=== PATIENT | female | born 1985 | race Caucasian/White ===

== ENCOUNTER 2020-01-16 07:07 | Day surgery (SDC) | payer BC ==
[2020-01-16] MEDS: Lactated Ringers 1,000 ML IV SCH ×2 (06:58→09:38)
[~2020-01-16 07:07] MED LIST: Lidocaine 1%/Sod Bicarbonate in NS 8.4% 1 ML Syringe IDERM PRN; Sodium Chloride 0.9% 10 ML Syringe FLUSH PRN
--- NOTE | 2020-01-16 07:20 | PCM.PREANE ---
Preanesthetic Assessment - Procedure Proposed Procedure: TVH with BS - Anesthesia/Transfusion/Family Hx Anesthesia History: Prior Anesthesia Reaction (itching) Family History of Anesthesia Reaction: No Transfusion History: No Prior Transfusion(s) - Review of Systems General: No Symptoms Pulmonary: No Symptoms Cardiovascular: No Symptoms Gastrointestinal: No Symptoms Neurological: No Symptoms Other: Reports: None - Physical Assessment NPO Status Date: 01/15/20 NPO Status Time: 17:30 Vital Signs: Last Vital Signs Temp 36.8 C 01/16/20 06:35 Pulse 67 01/16/20 06:35 Resp 16 01/16/20 06:35 BP 125/88 01/16/20 06:35 Pulse Ox 98 01/16/20 06:35 Height: 1.68 m Weight: 57.153 kg ASA Class: 2 Mental Status: Alert & Oriented x3 Airway Class: Mallampati = 1 Dentition: Reports: Normal Dentition Thyro-Mental Finger Breadths: 3 Mouth Opening Finger Breadths: 3 ROM/Head Extension: Full Lungs: Clear to Auscultation, Normal Respiratory Effort Cardiovascular: Regular Rate, Regular Rhythm - Lab Values: Laboratory Last Values WBC 5.13 K/mm3 (3.98-10.04) 01/13/20 16:03 RBC 4.75 M/mm3 (3.98-5.22) 01/13/20 16:03 Hgb 14.1 gm/dl (11.2-15.7) 01/13/20 16:03 Hct 42.1 % (34.1-44.9) 01/13/20 16:03 MCV 88.6 fl (79.4-94.8) 01/13/20 16:03 MCH 29.7 pg (25.6-32.2) 01/13/20 16:03 MCHC 33.5 g/dl (32.2-35.5) 01/13/20 16:03 RDW Std Deviation 41.9 fL (36.4-46.3) 01/13/20 16:03 Plt Count 271 K/mm3 (182-369) 01/13/20 16:03 MPV 10.4 fl (9.4-12.3) 01/13/20 16:03 Neut % (Auto) 52.2 % (34.0-71.1) 01/13/20 16:03 Lymph % (Auto) 33.7 % (19.3-51.7) 01/13/20 16:03 [place] % (Auto) 9.0 % (4.7-12.5) 01/13/20 16:03 Eos % (Auto) 4.7 (0.7-5.8) 01/13/20 16:03 Baso % (Auto) 0.4 % (0.1-1.2) 01/13/20 16:03 Neut # (Auto) 2.68 K/mm3 (1.56-6.13) 01/13/20 16:03 Lymph # (Auto) 1.73 K/mm3 (1.18-3.74) 01/13/20 16:03 [place] # (Auto) 0.46 K/mm3 (0.24-0.36) H 01/13/20 16:03 Eos # (Auto) 0.24 K/mm3 (0.04-0.36) 01/13/20 16:03 Baso # (Auto) 0.02 K/mm3 (0.01-0.08) 01/13/20 16:03 Urine Color Yellow (Yellow) 01/16/20 06:33 Urine Appearance Clear (Clear) 01/16/20 06:33 Urine pH 6.0 (5.0-8.0) 01/16/20 06:33 Ur Specific [place] > or = 1.030 (1.005-1.030) 01/16/20 06:33 Urine Protein Trace (Negative) H 01/16/20 06:33 Urine Glucose (UA) Negative (Negative) 01/16/20 06: Urine Ketones Negative (Negative) 01/16/20 06:33 Urine Occult Blood 1+ (Negative) H 01/16/20 06:33 Urine Nitrite Negative (Negative) 01/16/20 06:33 Urine Bilirubin Negative (Negative) 01/16/20 06:33 Urine Urobilinogen 0.2 (0.2-1.0) 01/16/20 06:33 Ur Leukocyte Esterase Negative (Negative) 01/16/20 06:33 Urine HCG, Qual Negative (NEGATIVE) 01/13/20 16:03 - Allergies Allergies/Adverse Reactions: Allergies Allergy/AdvReac Type Severity Reaction Status Date / Time No Known Allergies Allergy Verified 01/14/20 16:19 - Blood Blood Available: Yes Product(s) Available: PRBC - Anesthesia Plan Pre-Op Medication Ordered: None - Acknowledgements Anesthesia Type Planned: General Anesthesia Pt an Appropriate Candidate for the Planned Anesthesia: Yes Alternatives and Risks of Anesthesia Discussed w Pt/Guardian: Yes Pt/Guardian Understands and Agrees with Anesthesia Plan: Yes PreAnesthesia Questionnaire HEENT History: Reports: Other (See Below) Other HEENT History: rhytides Cardiovascular History: Reports: None Respiratory History: Reports: Asthma Gastrointestinal History: Reports: None Genitourinary History: Reports: UTI, Recurrent, Other (See Below) Other Genitourinary History: dysuria MANAGER MOLECULAR History: Reports: Endometriosis, Other OB/BYN History: delivery X 1, dysmenorrhea, vaginal discharge, cervical cancer screening Musculoskeletal History: Reports: None Neurological History: Reports: Migraines Psychiatric History: Reports: Anxiety, Depression Endocrine/Metabolic History: Reports: None Hematologic History: Reports: Anemia Immunologic History: Reports: None Oncologic (Cancer) History: Reports: None Dermatologic History: Reports: Other (See Below) Other Dermatologic History: acne, dermatitis, rash - Past Surgical History Head Surgeries/Procedures: Reports: None HEENT Surgical History: Reports: Tonsillectomy Respiratory Surgical History: Reports: None GI Surgical History: Reports: None Female Surgical History: Reports: None Male Surgical History: Reports: None Endocrine Surgical History: Reports: None Neurological Surgical History: Reports: None Musculoskeletal Surgical History: Reports: Arthroscopic Knee Other Musculoskeletal Surgeries/Procedures:: Left ACL Oncologic Surgical History: Reports: None Dermatological Surgical History: Reports: None - SUBSTANCE USE Smoking Status *Q: Never Smoker Tobacco Use Within Last Twelve Months: No Second Hand Smoke Exposure: No Days Per Week of Alcohol Use: 0 Number of Drinks Per Day: 0 Total Drinks Per Week: 0 Recreational Drug Use History: No - HOME MEDS Home Medications: Home Meds L Acidophil/B Lactis/B Longum [Florajen3] 460 mg PO DAILY 01/14/20 [History] Multivitamin [Daily Pedrito] 1 tab PO DAILY 01/14/20 [History] Rizatriptan Benzoate [Rizatriptan] 10 mg PO ASDIRECTED PRN 01/14/20 [History] Topiramate 25 mg PO BEDTIME 01/14/20 [History] desog-e.estradioL/e.estradioL [Desogestr-Eth Estrad Eth Estra] 1 tab PO DAILY [History] - CURRENT (IN HOUSE) MEDS Current Meds: Current Medications Lactated Ringer's (Ringers, Lactated) 1,000 mls @ 125 mls/hr IV ASDIRECTED TAMIKO Stop: 01/16/20 23:00 Last Admin: 01/16/20 06:58 Dose: 125 mls/hr Lidocaine/Sodium Bicarbonate (Buffered Lidocaine 1% In Ns 8.4%) 0.25 ml IDERM ONETIME PRN PRN Reason: Prior to IV Start Stop: 01/16/20 18:00 Last Admin: 01/16/20 06:58 Dose: 0.25 ml Sodium Chloride (Saline Flush) 10 ml FLUSH ASDIRECTED PRN PRN Reason: Keep Vein Open Stop: 01/16/20 18:00
[2020-01-16] MEDS ORDERED: Rocuronium 50 MG/5 ML Vial ONE (07:29)
[2020-01-16] MEDS ORDERED: Midazolam 1 MG/ML 2 ML SDV ONE (07:29)
[2020-01-16] MEDS ORDERED: Ondansetron 4 MG/2 ML SDV ONE (07:29)
[2020-01-16] MEDS ORDERED: Propofol 200 MG/20 ML SDV ONE (07:29)
[2020-01-16] MEDS ORDERED: fentaNYL 250 MCG/5 ML SDV ONE (07:30)
[2020-01-16] MEDS ORDERED: Lidocaine 1% with EPINEPHrine 1:100,000 20 ML MDV ONE (07:30)
[2020-01-16] MEDS ORDERED: Bupivacaine 0.5% 30 ML SDV ONE (07:31)
[2020-01-16] MEDS ORDERED: Sodium Chloride 0.9% 50 ML SDV ONE (07:31)
[2020-01-16] MEDS ORDERED: Lidocaine 1% 4 ML ONE (07:35)
[2020-01-16] MEDS ORDERED: Dexamethasone 4 MG/ML 5 ML MDV ONE (07:36)
[2020-01-16] MEDS ORDERED: Ketorolac 30 MG/ML SDV ONE (07:36)
[2020-01-16] MEDS ORDERED: ceFAZolin 1 GM Vial ONE (07:38)
[2020-01-16] MEDS ORDERED: HYDROmorphone 1 MG/ML Syringe ONE (08:12)
[2020-01-16] MEDS ORDERED: Lactated Ringers 1,000 ML ONE (08:14)
[2020-01-16] MEDS ORDERED: Acetaminophen/oxyCODONE 325-5 MG Tab PO PRN (08:37)
[2020-01-16] MEDS ORDERED: Ondansetron 4 MG/2 ML SDV IVPUSH PRN (08:37)
--- NOTE | 2020-01-16 08:42 | PCM.OPNOTE ---
- General Post-Op/Procedure Note Date of Surgery/Procedure: 01/16/20 Operative Procedure(s): Total vaginal Hysterectomy with bilateral salpingectomy Findings: Uterus tubes and ovaries were normal size. No abnormalities noted. Pre Op Diagnosis: 1. Menorrhagia. 2. Dysmenorrhea Post-Op Diagnosis: Same Anesthesia Technique: General ET Tube Other Anesthesia Type: Lidocaine quarter percent with [id number] mLlocal Primary Surgeon: Nadeem Gan Secondary Surgeon: Dean Bella Anesthesia Provider: Miko Palomino Reason Marketing Rep Was Necessary: Assistance, retraction, patient's safety, quality of care. Pathology: Bilateral fallopian tubes, uterus Fluid Replacement, Intraop: 1,500 EBL in mLs: 5 Complications: None Condition: Good Free Text/Narrative:: Surgery duration: 19 minutes Procedure: The patient was placed in supine position on the operating table. General endotracheal anesthesia was accomplished. After positioning, and adequate prep and drape, the procedure was then performed. Sterile speculum was placed in the vagina and cervix was visualized. Cervix was injected with lidocaine quarter percent with epinephrine-20 mL used. A full circumference incision was made in the cervical epithelium. The bladder was pushed well back off cervix. Posterior cul-de-sac was then entered sharply without problems. Left uterosacral was crossclamped with a Enseal vessel closure system. The left uterosacral and then the right uterosacral ligament pedicles were developed using the Enseal system. The anterior cul-de-sac was then entered without problems and the uterine vasculature, cardinal ligament and broad ligament and fallopian tube ligaments were then developed using Enseal vessel closure system. Specimen was totally removed. Left and right fallopian tube was normal in appearance.. Using Enseal vessel closure system each of the tubes was then removed and sent with the specimen. The patient was found to be hemostatically intact at this time. Vaginal cuff was sutured for hemostatic reasons with a running locked suture of 0 Monocryl from the 2 o'clock position to the 10 o'clock position posteriorly. Vaginal cuff was then closed from right to left side with a running locked suture of 0 Monocryl. Patient was returned to supine position and awakened from general endotracheal anesthesia. She tolerated the procedure and left the operating room in satisfactory condition.
[2020-01-16] MEDS ORDERED: diphenhydrAMINE 50 MG/ML SDV IVPUSH PRN (09:04)
[2020-01-16] MEDS ORDERED: fentaNYL 100 MCG/2 ML SDV IVPUSH PRN (09:04)
--- NOTE | 2020-01-16 09:06 | PCM.POSTAN ---
POST ANESTHESIA ASSESSMENT - MENTAL STATUS Mental Status: Alert, Oriented - VITAL SIGNS Vital Signs: Last Vital Signs Temp 36.8 C 01/16/20 06:35 Pulse 67 01/16/20 06:35 Resp 16 01/16/20 06:35 BP 125/88 01/16/20 06:35 Pulse Ox 98 01/16/20 06:35 - RESPIRATORY Respiratory Status: Respiratory Rate WNL, Airway Patent, O2 Saturation Stable, Supplemental Oxygen - CARDIOVASCULAR CV Status: Pulse Rate WNL, Blood Pressure Stable - GASTROINTESTINAL GI Status: No Symptoms - PAIN Pain Score: 2 - POST OP HYDRATION Hydration Status: Adequate & Stable - OBSERVATIONS Free Text/Narrative:: no anesthesia complications noted
--- NOTE | 2020-01-16 09:24 | PCM48HPAN ---
Post Anesthesia Note - EVALUATION WITHIN 48HRS OF ANESTHETIC Vital Signs in Normal Range: Yes Patient Participated in Evaluation: Yes Respiratory Function Stable: Yes Airway Patent: Yes Cardiovascular Function Stable: Yes Hydration Status Stable: Yes Pain Control Satisfactory: Yes Nausea and Vomiting Control Satisfactory: Yes Mental Status Recovered: Yes Vital Signs: Last Vital Signs Temp 36.8 C 01/16/20 06:35 Pulse 67 01/16/20 06:35 Resp 16 01/16/20 06:35 BP 125/88 01/16/20 06:35 Pulse Ox 98 01/16/20 06:35
[2020-01-16 10:37] VITALS: BP 116/81; PULSE 64
[2020-01-16] MEDS ORDERED: Ketorolac 30 MG/ML SDV IVPUSH SCH (13:30)
== END 2020-01-16 10:57 | disposition home or self-care (01) ==
LOC: JD.SDS 07:07
PROVIDERS: ATTEND Obstetrics & Gynecology
DX: N87.9 Dysplasia of cervix uteri, unspecified (principal); N72 Inflammatory disease of cervix uteri; N83.8 Other noninflammatory disorders of ovary, fallopian tube and broad ligament; N94.10 Unspecified dyspareunia; F41.9 Anxiety disorder, unspecified; G43.A0 Cyclical vomiting, in migraine, not intractable; J45.909 Unspecified asthma, uncomplicated; F32.9 Major depressive disorder, single episode, unspecified; Z79.899 Other long term (current) drug therapy
CPT/HCPCS: 36415; 58262; 81003; 81025; 82565; 85025; 86850; 86900; 86901; A9270; J0690; J1100; J1170; J1885; J2001; J2250; J2405; J2704; J2710; J3010; J7120; 00944; J3490

== ENCOUNTER 2021-02-05 18:23 | Emergency (ER) | payer BC ==
[2021-02-05 18:32] VITALS: BP 149/96; PULSE 78
[2021-02-05] MEDS ORDERED: Sodium Chloride 0.9% 10 ML Syringe FLUSH PRN (18:44)
[2021-02-05] MEDS ORDERED: Ondansetron 4 MG/2 ML SDV IVPUSH ONE (18:44)
[2021-02-05] MEDS ORDERED: HYDROmorphone 1 MG/ML Syringe IVPUSH STA (18:44)
[2021-02-05] MEDS ORDERED: Sodium Chloride 0.9% 1,000 ML IV SCH (18:45)
--- NOTE | 2021-02-05 18:51 | EDM.PDOC ---
ED HPI GENERAL MEDICAL PROBLEM - General Chief Complaint: Abdominal Pain Stated Complaint: R SIDE ABD PAIN Time Seen by Provider: 02/05/21 18:34 Source of Information: Reports: Patient, RN Notes Reviewed History Limitations: Reports: No Limitations - History of Present Illness INITIAL COMMENTS - FREE TEXT/NARRATIVE: Patient is a 36-year-old female who presents to the ER for the evaluation of her right lower abdominal pain. She states that she has been having issues with this on and off for a while however about 2 hours ago, it became fairly sharp and consistent. She states that there is always a dull ache, but does get sharp and intense at times so much that it makes it difficult to walk around or move much at all. States that the bumps in the road on the way over here did not feel good at all. She states that the pain does hurt worse when she stands straight up, or if she would bend her knees to her chest. States also that when she puts direct pressure on the right lower quadrant, but this seems to make it worse. She still retains her appendix, and ovaries but has had her uterus taken out. She states she has had no fever, but she does feel hot and cold, and also nauseous. But she has not had any vomiting or diarrhea, any cough or shortness of breath. Right Abdominal Pain Score (Numeric/FACES): 4 - Related Data Allergies Allergy/AdvReac Type Severity Reaction Status Date / Time No Known Allergies Allergy Verified 02/05/21 18:32 Home Meds: Home Meds Rizatriptan Benzoate [Rizatriptan] 10 mg PO DAILY PRN 02/05/21 [History] Past Medical History Respiratory History: Reports: Asthma Genitourinary History: Reports: UTI, Recurrent, Other (See Below) Other Genitourinary History: dysuria EMERGENCY ROOM ORDERLY History: Reports: Other EMERGENCY ROOM ORDERLY History: delivery X 1, dysmenorrhea, vaginal discharge, cervical cancer screening Neurological History: Reports: Migraines Psychiatric History: Reports: Anxiety, Depression Hematologic History: Reports: Anemia Dermatologic History: Reports: Other (See Below) Other Dermatologic History: acne, dermatitis, rash - Past Surgical History HEENT Surgical History: Reports: Tonsillectomy Female Surgical History: Reports: Hysterectomy Musculoskeletal Surgical History: Reports: Arthroscopic Knee Other Musculoskeletal Surgeries/Procedures:: Left ACL Social & Family History - Tobacco Use Tobacco Use Status *Q: Never Tobacco User Second Hand Smoke Exposure: No - Caffeine Use Caffeine Use: Reports: None ED ROS GENERAL - Review of Systems Review Of Systems: Comprehensive ROS is negative, except as noted in HPI. ED EXAM, GI/ABD - Physical Exam Exam: See Below Exam Limited By: No Limitations General Appearance: Alert, WD/WN, No Apparent Distress Respiratory/Chest: No Respiratory Distress, Lungs Clear, Normal Breath Sounds, No Accessory Muscle Use, Chest Non-Tender Cardiovascular: Normal Peripheral Pulses, Regular Rate, Rhythm, No Edema GI/Abdominal Exam: Normal Bowel Sounds, Soft, No Distention, No Mass, Tender (exquisite tenderness to RLQ with direct palpation) Extremities: Normal Inspection, Normal Capillary Refill Neurological: Alert, Oriented, Normal Cognition, No Motor/Sensory Deficits Psychiatric: Normal Affect, Normal Mood Skin Exam: Warm, Dry, Intact, Normal Color, No Rash Course - Vital Signs Last Recorded V/S: Last Vital Signs Temp 98.0 F 02/05/21 18:31 Pulse 78 02/05/21 18:31 Resp 20 02/05/21 18:31 BP 149/96 H 02/05/21 18:31 Pulse Ox 99 02/05/21 18:31 - Orders/Labs/Meds Orders: Active Orders 24 hr Category Date Time Status Peripheral IV Care [RC] . DIRECTED Care 02/05/21 18:45 Ordered Abdomen Pelvis w Cont [CT] Stat Exams 02/05/21 18:45 Ordered Magnesium Citrate [Citrate of Magnesia] Med 02/05/21 21:20 Once 296 ml PO ONETIME ONE Sodium Chloride 0.9% [Normal Saline] 1,000 ml Med 02/05/21 18:45 Ordered IV ASDIRECTED Sodium Chloride 0.9% [Saline Flush] Med 02/05/21 18:44 Ordered 10 ml FLUSH ASDIRECTED PRN Sodium Chloride 0.9% [Saline Flush] Med 02/05/21 20:45 Active 20 ml FLUSH BOLUS Peripheral IV Insertion Adult [OM.PC] Stat Oth 02/05/21 18:45 Ordered Medication Orders Sodium Chloride (Normal Saline) 1,000 mls @ 999 mls/hr IV ASDIRECTED TAMIKO Last Admin: 02/05/21 18:54 Dose: 999 mls/hr Documented by: NATALEE Sodium Chloride (Sodium Chloride 0.9% 10 Ml Syringe) 10 ml FLUSH ASDIRECTED PRN PRN Reason: Keep Vein Open Last Admin: 02/05/21 18:55 Dose: 10 ml Documented by: NATALEE Sodium Chloride (Sodium Chloride 0.9% 10 Ml Syringe) 20 ml FLUSH BOLUS TAMIKO Last Admin: 02/05/21 20:33 Dose: 10 ml Documented by: BROOKE Labs: Laboratory Tests 02/05/21 02/05/21 02/05/21 Range/Units 18:40 18:45 18:45 WBC 6.35 (3.98-10.04) K/mm3 RBC 4.42 (3.98-5.22) M/mm3 Hgb 13.6 (11.2-15.7) gm/dl Hct 39.4 (34.1-44.9) % MCV 89.1 (79.4-94.8) fl MCH 30.8 (25.6-32.2) pg MCHC 34.5 (32.2-35.5) g/dl RDW Std Deviation 37.8 (36.4-46.3) fL Plt Count 224 (182-369) K/mm3 MPV 10.3 (9.4-12.3) fl Neut % (Auto) 63.3 (34.0-71.1) % Lymph % (Auto) 26.9 (19.3-51.7) % [place] % (Auto) 8.0 (4.7-12.5) % Eos % (Auto) 1.6 (0.7-5.8) Baso % (Auto) 0.2 (0.1-1.2) % Neut # (Auto) 4.02 (1.56-6.13) K/mm3 Lymph # (Auto) 1.71 (1.18-3.74) K/mm3 [place] # (Auto) 0.51 H (0.24-0.36) K/mm3 Eos # (Auto) 0.10 (0.04-0.36) K/mm3 Baso # (Auto) 0.01 (0.01-0.08) K/mm3 Sodium 139 (136-145) mEq/L Potassium 3.8 (3.5-5.1) mEq/L Chloride 102 (98-107) mEq/L Carbon Dioxide 24 (21-32) mEq/L Anion Gap 16.8 H (5-15) BUN 13 (7-18) mg/dL Creatinine 0.8 (0.55-1.02) mg/dL Est Cr Clr Drug Dosing 92.24 mL/min Estimated GFR (MDRD) > 60 (>60) mL/min BUN/Creatinine Ratio 16.3 (14-18) Glucose 107 H (70-99) mg/dL Calcium 8.9 (8.5-10.1) mg/dL Total Bilirubin 0.5 (0.2-1.0) mg/dL AST 15 (15-37) U/L ALT 16 (14-59) U/L Alkaline Phosphatase 57 (46-116) U/L C-Reactive Protein <0.2 (<1.0) mg/dL Total Protein 7.3 (6.4-8.2) g/dl Albumin 4.0 (3.4-5.0) g/dl Globulin 3.3 gm/dL Albumin/Globulin Ratio 1.2 (1-2) Lipase 89 (73-393) U/L Urine Color Light yellow (Yellow) Urine Appearance Slt cloudy H (Clear) Urine pH 7.0 (5.0-8.0) Ur Specific [place] 1.025 (1.005-1.030) Urine Protein Negative (Negative) Urine Glucose (UA) Negative (Negative) Urine Ketones Negative (Negative) Urine Occult Blood Trace-intact H (Negative) Urine Nitrite Negative (Negative) Urine Bilirubin Negative (Negative) Urine Urobilinogen 1.0 (0.2-1.0) Ur Leukocyte Esterase Negative (Negative) Urine RBC 0-5 (0-5) /hpf Urine WBC 0-5 (0-5) /hpf Ur Squamous Epith Cells 0-5 (0-5) /hpf Amorphous Sediment Moderate H (NOT SEEN) /hpf Urine Bacteria Few (FEW) /hpf Coarse Granular Casts 0-5 (0-5) /hpf Urine Mucus Few (FEW) /hpf Meds: Medications Generic Name Dose Route Start Last Admin Trade Name Freq PRN Reason Stop Dose Admin Sodium Chloride 1,000 mls @ 999 mls/hr 02/05/21 18:45 02/05/21 18:54 Normal Saline IV 999 mls/hr ASDIRECTED TAMIKO Administration Sodium Chloride 10 ml 02/05/21 18:44 02/05/21 18:55 Sodium Chloride 0.9% 10 Ml Syringe FLUSH 10 ml ASDIRECTED PRN Administration Keep Vein Open Sodium Chloride 20 ml 02/05/21 20:45 02/05/21 20:33 Sodium Chloride 0.9% 10 Ml Syringe FLUSH 10 ml BOLUS TAMIKO Administration Discontinued Medications Generic Name Dose Route Start Last Admin Trade Name Rylie PRN Reason Stop Dose Admin Hydromorphone HCl 1 mg 02/05/21 18:44 02/05/21 18:58 Hydromorphone 1 Mg/Ml Syringe IVPUSH 02/05/21 18:45 1 mg ONETIME STA Administration Iopamidol 100 ml 02/05/21 20:31 02/05/21 20:33 Iopamidol 612 Mg/Ml 100 Ml Bottle IVPUSH 02/05/21 20:32 100 ml ONETIME ONE Administration Ondansetron HCl 4 mg 02/05/21 18:44 02/05/21 18:54 Ondansetron 4 Mg/2 Ml Sdv IVPUSH 02/05/21 18:45 4 mg ONETIME ONE Administration - Re-Assessments/Exams Free Text/Narrative Re-Assessment/Exam: 02/05/21 18:51 Patient presents to the ER for her right lower quadrant pain, she does appear to be in quite a bit of pain, highly suspect possible appendicitis versus possible ovarian cyst at this time. We will get some labs, get IV started give her some fluids, pain meds, nausea meds, get abdomen pelvis CT with IV and oral contrast for further evaluation. 02/05/21 21:30 Patient's labs are unremarkable, CT did not see the appendix, but there is no evidence for appendicitis, there is gas and stool seen in the colon to the rectum. The patient has no sign of acute intra-abdominal pathology. The appendix was not identified however there is no evidence of appendicitis. The your were no sign of adnexal masses, and or pelvic fluid to suggest a ruptured ovarian cyst. Patient will be given a bottle of magnesium citrate and strict return precautions. Her case was discussed with Dr. Turpin, surgeon on-call and she feels okay with letting the patient go home monitoring her symptoms and returning if they seem to worsen or if she gets any sort of fever. Departure - Departure Time of Disposition: 21:31 Disposition: Home, Self-Care 01 Condition: Good Clinical Impression: Lower abdominal pain of unknown etiology - Discharge Information *PRESCRIPTION DRUG MONITORING PROGRAM REVIEWED*: No *COPY OF PRESCRIPTION DRUG MONITORING REPORT IN PATIENT JOSH: No Instructions: Abdominal Pain, Adult, [id number] Referrals: Lynette Kamara PA-C [Primary Care Provider] - Forms: ED Department Discharge Additional Instructions: You have been evaluated in the ED for abdominal pain. You had labs done at this visit along with abdominal/pelvis CT, these did demonstrate that you are constipated. You have been given a bottle of magnesium citrate, please drink one half bottle, if you do not have a rather large bowel movement in the next few hours, continue with the last half bottle. Please note that you will have some mild abdomen cramping while using this medication, and you may have some looser stools towards the end of use of this medication. Although your appendix was not identified on this CT exam, there is no sign of inflammation around the area where the appendix would typically be, and laboratory evaluation also demonstrates no sign of acute bacterial infection that would be suggestive of appendicitis at this time. Please monitor your symptoms, if you should develop any worsening symptoms like fevers or chills, worsening abdominal pain that does not seem to go away do not hesitate to return to the ER at any time for further evaluation. Sepsis Event Note (ED) - Evaluation Sepsis Screening Result: No Definite Risk - Focused Exam Vital Signs: Vital Signs Temp Pulse Resp BP Pulse Ox 02/05/21 18:31 98.0 F 78 20 149/96 H 99 - My Orders Last 24 Hours: My Active Orders 02/05/21 18:44 Sodium Chloride 0.9% [Saline Flush] 10 ml FLUSH ASDIRECTED PRN 02/05/21 18:45 Peripheral IV Care [RC] . DIRECTED Abdomen Pelvis w Cont [CT] Stat Sodium Chloride 0.9% [Normal Saline] 1,000 ml IV ASDIRECTED Peripheral IV Insertion Adult [OM.PC] Stat 02/05/21 20:45 Sodium Chloride 0.9% [Saline Flush] 20 ml FLUSH BOLUS 02/05/21 21:20 Magnesium Citrate [Citrate of Magnesia] 296 ml PO ONETIME ONE - Assessment/Plan Last 24 Hours: My Active Orders 02/05/21 18:44 Sodium Chloride 0.9% [Saline Flush] 10 ml FLUSH ASDIRECTED PRN 02/05/21 18:45 Peripheral IV Care [RC] . DIRECTED Abdomen Pelvis w Cont [CT] Stat Sodium Chloride 0.9% [Normal Saline] 1,000 ml IV ASDIRECTED Peripheral IV Insertion Adult [OM.PC] Stat 02/05/21 20:45 Sodium Chloride 0.9% [Saline Flush] 20 ml FLUSH BOLUS 02/05/21 21:20 Magnesium Citrate [Citrate of Magnesia] 296 ml PO ONETIME ONE
[2021-02-05] MEDS ORDERED: Iopamidol 612 MG/ML 100 ML Bottle IVPUSH ONE (20:31)
[2021-02-05] MEDS ORDERED: Sodium Chloride 0.9% 10 ML Syringe FLUSH SCH (20:45)
[2021-02-05] MEDS ORDERED: Magnesium Citrate Solution 296 ML Bottle PO ONE (21:20)
--- NOTE | 2021-02-06 08:40 | CT ---
CT abdomen and pelvis Technique: Multiple axial sections were obtained from above the dome of the diaphragm inferiorly through the pubic symphysis. Intravenous and oral contrast were utilized. Reconstructed coronal and sagittal images were obtained. Additional delayed images were also obtained through the abdomen and pelvis. Comparison: No prior CT study is available. Findings: Visualized lung bases show nothing acute. Liver contains no focal parenchymal abnormality. Very minimal low density is noted next to the ligamentum teres fissure which is felt to be incidental. Spleen size is normal. Adrenal glands show no nodule. Pancreas shows no abnormality. Kidneys show symmetric contrast enhancement with no hydronephrosis or mass being seen. Gallbladder contains no calcified gallstones. Abdominal aorta shows no aneurysm. No retroperitoneal adenopathy or mesenteric abnormalities are seen. Appendix is felt to be visualized and normal in size. No pelvic mass or adenopathy is seen. Delayed images show two ureters on both sides which appear to join distally near the UVJ. No ureteral dilatation is seen. Contrast is noted within the bladder. Bone window settings were reviewed which show no acute osseous abnormality. Impression: 1. Two ureters are noted on both sides which appear to join near the UVJ. No ureteral dilatation is seen. These findings are likely incidental. 2. No acute abnormality is appreciated on CT study of the abdomen and pelvis. Diagnostic code #2 I agree with preliminary report from [facility] finalized on 02/05/21, 10:01 PM CDT, code 1
== END 2021-02-05 21:40 | disposition home or self-care (01) ==
LOC: JD.ED 18:23
DX: R10.31 Right lower quadrant pain (principal); J45.909 Unspecified asthma, uncomplicated
CPT/HCPCS: 36415; 74177; 80053; 81001; 83690; 85025; 86140; 96374; 96375; 99284; J1170; J2405; J7030; Q9967

== ENCOUNTER 2021-06-23 19:29 | Observation (INO) | payer BC ==
[2021-06-23] MEDS ORDERED: Sodium Chloride 0.9% 10 ML Syringe FLUSH PRN (20:02)
[2021-06-23] MEDS ORDERED: Sodium Chloride 0.9% 1,000 ML IV STA (20:02)
[2021-06-23] MEDS ORDERED: Metoclopramide 10 MG/2 ML SDV IVPUSH ONE (20:02)
[2021-06-23] MEDS ORDERED: HYDROmorphone 1 MG/ML Syringe IVPUSH ONE (20:03)
--- NOTE | 2021-06-23 20:22 | EDM.PDOC ---
ED HPI GENERAL MEDICAL PROBLEM - General Chief Complaint: Gastrointestinal Problem Stated Complaint: ENFLAMMED INTESTINES PER WIC/FEVER Time Seen by Provider: 06/23/21 19:34 Source of Information: Reports: Patient, Family, Old Records History Limitations: Reports: No Limitations - History of Present Illness INITIAL COMMENTS - FREE TEXT/NARRATIVE: The patient presents with fever, abdominal pain, nausea, vomiting and diarrhea. This all started on Sunday with a fever. She went to the walk in clinic. They put her on a Z-pack. She took it for a day and things got worse. She developed abdominal pain, nausea, vomiting and diarrhea. She had a more of a fever of 103. She went back to [facility] today and they did an extensive work up to include labs, UA and a CT of her abdomen and pelvis. Her CBC looked good. Her UA shows no UTI. Her CT showed findings suggestive of enteritis. They put in a referral to GI. She went home and got worse. She came to the ER to bee seen. She said she has been having some abdominal pain since January. She was seen here and a CT scan was done. There was nothing acute seen on CT. The pain came back a few months later and the did a pelvis US. There was nothing acute seen. She had a hysterectomy in the past. She had 2 siblings that had normal labs and normal CTs with abdominal pain and both had there appendix out and it was infected. The patient was positive for COVID 19 4 weeks ago. The did stool studies at the clinic but they are not back yet. She has no cough, congestion, runny nose, chest pain or shortness of breath. She has no dysuria. Onset: Gradual Duration: Day(s): (4) Location: Reports: Abdomen Quality: Reports: Sharp Severity: Severe Improves with: Reports: None Worsens with: Reports: None Associated Symptoms: Reports: Fever/Chills, Nausea/Vomiting. Denies: Chest Pain, Cough, Headaches, Shortness of Breath Abdomen Pain Score (Numeric/FACES): 8 - Related Data Allergies Allergy/AdvReac Type Severity Reaction Status Date / Time No Known Allergies Allergy Verified 06/23/21 23:44 Home Meds: Home Meds Rizatriptan Benzoate [Rizatriptan] 10 mg PO DAILY PRN 02/05/21 [History] Past Medical History HEENT History: Reports: Other (See Below) Other HEENT History: rhytides Cardiovascular History: Reports: None Respiratory History: Reports: Asthma Gastrointestinal History: Reports: None Genitourinary History: Reports: UTI, Recurrent, Other (See Below) Other Genitourinary History: dysuria [employer] History: Reports: Other [employer] History: delivery X 1, dysmenorrhea, vaginal discharge, cervical cancer screening Musculoskeletal History: Reports: None Neurological History: Reports: Migraines Psychiatric History: Reports: Anxiety, Depression Endocrine/Metabolic History: Reports: None Hematologic History: Reports: Anemia Immunologic History: Reports: None Oncologic (Cancer) History: Reports: None Dermatologic History: Reports: Other (See Below) Other Dermatologic History: acne, dermatitis, rash - Infectious Disease History Infectious Disease History: Reports: Novel Coronavirus - Past Surgical History Head Surgeries/Procedures: Reports: None HEENT Surgical History: Reports: Tonsillectomy Respiratory Surgical History: Reports: None GI Surgical History: Reports: None Female Surgical History: Reports: Hysterectomy Endocrine Surgical History: Reports: None Neurological Surgical History: Reports: None Musculoskeletal Surgical History: Reports: Arthroscopic Knee Other Musculoskeletal Surgeries/Procedures:: Left ACL Oncologic Surgical History: Reports: None Dermatological Surgical History: Reports: None Social & Family History - Tobacco Use Tobacco Use Status *Q: Never Tobacco User - Caffeine Use Caffeine Use: Reports: Coffee - Recreational Drug Use Recreational Drug Use: No ED ROS GENERAL - Review of Systems Review Of Systems: See Below Constitutional: Reports: Fever, Chills HEENT: Reports: No Symptoms Respiratory: Reports: No Symptoms Cardiovascular: Reports: No Symptoms Endocrine: Reports: No Symptoms GI/Abdominal: Reports: Abdominal Pain, Diarrhea, Nausea, Vomiting : Reports: No Symptoms Musculoskeletal: Reports: No Symptoms ED EXAM, GI/ABD - Physical Exam Exam: See Below Exam Limited By: No Limitations General Appearance: Alert, No Apparent Distress Ears: Normal External Exam Nose: Normal Inspection Head: Atraumatic, Normocephalic Neck: Normal Inspection, Supple, Non-Tender Respiratory/Chest: No Respiratory Distress, Lungs Clear, Normal Breath Sounds Cardiovascular: Regular Rate, Rhythm, No Edema, No Murmur GI/Abdominal Exam: Soft, No Mass, Tender (Moderate to severe tenderness to her abdomen with some guarding) Back Exam: Normal Inspection Extremities: Normal Inspection Course - Vital Signs Last Recorded V/S: Last Vital Signs Temp 101.2 F H 06/23/21 19:46 Pulse 109 H 06/23/21 19:46 Resp 20 06/23/21 19:46 BP 107/71 06/23/21 19:46 Pulse Ox 98 06/23/21 19:46 - Orders/Labs/Meds Orders: Active Orders 24 hr Category Date Time Status Peripheral IV Care [RC] . DIRECTED Care 06/23/21 20:02 Active BLOOD CULTURE [MREF] Stat Lab 06/23/21 20:35 Received BLOOD CULTURE [MREF] Stat Lab 06/23/21 20:50 Received Sodium Chloride 0.9% [Saline Flush] Med 06/23/21 20:02 Active 10 ml FLUSH ASDIRECTED PRN Blood Culture x2 Reflex Set [OM.PC] Stat Oth 06/23/21 20:16 Ordered ED Antiemetic Medication Reflex [OM.PC] Stat Oth 06/23/21 20:02 Ordered Peripheral IV Insertion Adult [OM.PC] Stat Oth 06/23/21 20:02 Ordered Medication Orders Sodium Chloride (Sodium Chloride 0.9% 10 Ml Syringe) 10 ml FLUSH ASDIRECTED PRN PRN Reason: Keep Vein Open Last Admin: 06/23/21 20:18 Dose: 10 ml Documented by: MERY Labs: Laboratory Tests 06/23/21 06/23/21 06/23/21 Range/Units 20:35 20:35 20:35 WBC 6.13 (3.98-10.04) K/mm3 RBC 3.73 L (3.98-5.22) M/mm3 Hgb 11.3 D (11.2-15.7) gm/dl Hct 33.8 L (34.1-44.9) % MCV 90.6 (79.4-94.8) fl MCH 30.3 (25.6-32.2) pg MCHC 33.4 (32.2-35.5) g/dl RDW Std Deviation 39.6 (36.4-46.3) fL Plt Count 119 L D (182-369) K/mm3 MPV 10.6 (9.4-12.3) fl Neut % (Auto) 87.6 H (34.0-71.1) % Lymph % (Auto) 5.5 L (19.3-51.7) % [place] % (Auto) 4.7 (4.7-12.5) % Eos % (Auto) 1.8 (0.7-5.8) Baso % (Auto) 0.2 (0.1-1.2) % Neut # (Auto) 5.37 (1.56-6.13) K/mm3 Lymph # (Auto) 0.34 L (1.18-3.74) K/mm3 [place] # (Auto) 0.29 (0.24-0.36) K/mm3 Eos # (Auto) 0.11 (0.04-0.36) K/mm3 Baso # (Auto) 0.01 (0.01-0.08) K/mm3 Sodium (136-145) mEq/L Potassium (3.5-5.1) mEq/L Chloride (98-107) mEq/L Carbon Dioxide (21-32) mEq/L Anion Gap (5-15) BUN (7-18) mg/dL Creatinine (0.55-1.02) mg/dL Est Cr Clr Drug Dosing mL/min Estimated GFR (MDRD) (>60) mL/min BUN/Creatinine Ratio (14-18) Glucose (70-99) mg/dL Lactic Acid 0.8 (0.4-2.0) mmol/L Calcium (8.5-10.1) mg/dL Total Bilirubin (0.2-1.0) mg/dL AST (15-37) U/L ALT (14-59) U/L Alkaline Phosphatase (46-116) U/L C-Reactive Protein 14.7 H* (<1.0) mg/dL Total Protein (6.4-8.2) g/dl Albumin (3.4-5.0) g/dl Globulin gm/dL Albumin/Globulin Ratio (1-2) Influenza Type A RNA (NEGATIVE) Influenza Type B RNA (NEGATIVE) SARS-CoV-2 RNA (AMY) (NEGATIVE) 06/23/21 06/23/21 Range/Units 20:35 20:59 WBC (3.98-10.04) K/mm3 RBC (3.98-5.22) M/mm3 Hgb (11.2-15.7) gm/dl Hct (34.1-44.9) % MCV (79.4-94.8) fl MCH (25.6-32.2) pg MCHC (32.2-35.5) g/dl RDW Std Deviation (36.4-46.3) fL Plt Count (182-369) K/mm3 MPV (9.4-12.3) fl Neut % (Auto) (34.0-71.1) % Lymph % (Auto) (19.3-51.7) % [place] % (Auto) (4.7-12.5) % Eos % (Auto) (0.7-5.8) Baso % (Auto) (0.1-1.2) % Neut # (Auto) (1.56-6.13) K/mm3 Lymph # (Auto) (1.18-3.74) K/mm3 [place] # (Auto) (0.24-0.36) K/mm3 Eos # (Auto) (0.04-0.36) K/mm3 Baso # (Auto) (0.01-0.08) K/mm3 Sodium 136 (136-145) mEq/L Potassium 3.2 L (3.5-5.1) mEq/L Chloride 103 (98-107) mEq/L Carbon Dioxide 22 (21-32) mEq/L Anion Gap 14.2 (5-15) BUN 7 (7-18) mg/dL Creatinine 0.8 (0.55-1.02) mg/dL Est Cr Clr Drug Dosing 90.82 mL/min Estimated GFR (MDRD) > 60 (>60) mL/min BUN/Creatinine Ratio 8.8 L (14-18) Glucose 104 H (70-99) mg/dL Lactic Acid (0.4-2.0) mmol/L Calcium 8.0 L (8.5-10.1) mg/dL Total Bilirubin 1.1 H (0.2-1.0) mg/dL AST 87 H (15-37) U/L ALT 157 H (14-59) U/L Alkaline Phosphatase 170 H (46-116) U/L C-Reactive Protein (<1.0) mg/dL Total Protein 7.0 (6.4-8.2) g/dl Albumin 3.0 L (3.4-5.0) g/dl Globulin 4.0 gm/dL Albumin/Globulin Ratio 0.8 L (1-2) Influenza Type A RNA Negative (NEGATIVE) Influenza Type B RNA Negative (NEGATIVE) SARS-CoV-2 RNA (AMY) Negative (NEGATIVE) Meds: Medications Generic Name Dose Route Start Last Admin Trade Name Rylie PRN Reason Stop Dose Admin Sodium Chloride 10 ml 06/23/21 20:02 06/23/21 20:18 Sodium Chloride 0.9% 10 Ml Syringe FLUSH 10 ml ASDIRECTED PRN Administration Keep Vein Open Discontinued Medications Generic Name Dose Route Start Last Admin Trade Name Rylie PRN Reason Stop Dose Admin Hydromorphone HCl 1 mg 06/23/21 20:03 06/23/21 20:13 Hydromorphone 1 Mg/Ml Syringe IVPUSH 06/23/21 20:04 1 mg ONETIME ONE Administration Hydromorphone HCl 0.5 mg 06/23/21 22:36 06/23/21 22:55 Hydromorphone 0.5 Mg/0.5 Ml Syringe IVPUSH 06/23/21 22:37 0.5 mg ONETIME ONE Administration Sodium Chloride 1,000 mls @ 1,000 mls/hr 06/23/21 20:02 06/23/21 20:12 Normal Saline IV 06/23/21 21:01 1,000 mls/hr .BOLUS STA Administration Methylprednisolone Sodium Succinate 125 mg 06/23/21 23:28 06/23/21 23:44 Methylprednisolone Sodium Succinate 125 Mg/2 Ml Sdv IVPUSH 06/23/21 23:29 125 mg ONETIME ONE Administration Metoclopramide HCl 10 mg 06/23/21 20:02 06/23/21 20:12 Metoclopramide 10 Mg/2 Ml Sdv IVPUSH 06/23/21 20:03 10 mg ONETIME ONE Administration - Re-Assessments/Exams Free Text/Narrative Re-Assessment/Exam: 06/23/21 20:42 I ordered an IV NS 1L bolus, reglan 10mg IV, dilaudid 1mg IV, blood cultures and lactic acid. 06/24/21 00:21 Her CBC looks good with a normal WBC. Her K is a little low at 3.2. Her lactic acid is normal. Her total bili is elevated at 1.1. Her AST is elevated at 87. Her ALT is elevated at 157. Her alk phos is elevated at 170. Her CRP is elevated at 14.7. Her Flu and COVID are negative. Her CT shoes some enteritis. I did contact Dr Pandya and he felt this could be chron's disease. He said he could see her outpatient. I asked if I could admit for observation. He recommended the hospitalist admit and he can consult on her. I have admitted her to observation to the hospitalist service. 06/24/21 00:28 Dr Pandya did recommend steroids to I ordered solu-medrol 125 IV. Departure - Departure Time of Disposition: 00:30 Disposition: Refer to Observation Condition: Fair Clinical Impression: Enteritis Fever Qualifiers: Fever type: due to other condition Qualified Code(s): R50.81 - Fever presenting with conditions classified elsewhere - Discharge Information Referrals: Lynette Kamara PA-C [Primary Care Provider] - Forms: ED Department Discharge Sepsis Event Note (ED) - Focused Exam Vital Signs: Vital Signs Temp Pulse Resp BP Pulse Ox 06/23/21 19:46 101.2 F H 109 H 20 107/71 98 - My Orders Last 24 Hours: My Active Orders 06/23/21 20:02 Peripheral IV Care [RC] . DIRECTED Sodium Chloride 0.9% [Saline Flush] 10 ml FLUSH ASDIRECTED PRN ED Antiemetic Medication Reflex [OM.PC] Stat Peripheral IV Insertion Adult [OM.PC] Stat 06/23/21 20:16 Blood Culture x2 Reflex Set [OM.PC] Stat 06/23/21 20:35 BLOOD CULTURE [MREF] Stat 06/23/21 20:50 BLOOD CULTURE [MREF] Stat - Assessment/Plan Last 24 Hours: My Active Orders 06/23/21 20:02 Peripheral IV Care [RC] . DIRECTED Sodium Chloride 0.9% [Saline Flush] 10 ml FLUSH ASDIRECTED PRN ED Antiemetic Medication Reflex [OM.PC] Stat Peripheral IV Insertion Adult [OM.PC] Stat 06/23/21 20:16 Blood Culture x2 Reflex Set [OM.PC] Stat 06/23/21 20:35 BLOOD CULTURE [MREF] Stat 06/23/21 20:50 BLOOD CULTURE [MREF] Stat
[2021-06-23 22:26] LABS: CORONAVIRUS COVID-19 NAA NEGATIVE (NEGATIVE)
[2021-06-23] MEDS ORDERED: HYDROmorphone 0.5 MG/0.5 ML Syringe IVPUSH ONE (22:36)
[2021-06-23] MEDS ORDERED: methylPREDNISolone Sodium Succinate 125 MG/2 ML SDV IVPUSH ONE (23:28)
[2021-06-24] MEDS: Lactated Ringers 1,000 ML IV SCH ×2 (01:45→14:33)
[2021-06-24] MEDS ORDERED: Acetaminophen/Butalbital/Caffeine 325-50-40 MG Tab PO ONE ×2 (04:25→04:44)
[2021-06-24] MEDS: HYDROmorphone 0.5 MG/0.5 ML Syringe IVPUSH PRN ×4 (06:08→21:12)
[2021-06-24] MEDS: Potassium Chloride 10 MEQ in Premix Bag 1 BAG IV SCH ×4 (09:26→12:37)
[2021-06-24] MEDS ORDERED: predniSONE 20 MG Tab PO ONE (10:31)
[2021-06-24] MEDS ORDERED: Rizatriptan Benzoate [Rizatriptan] 10 MG Tablet PO PRN (10:32)
--- NOTE | 2021-06-24 11:23 | PCM.CONS ---
H&P History of Present Illness - General Date of Service: 06/24/21 Admit Problem/Dx: Admission Diagnosis/Problem Admission Diagnosis/Problem Enteritis Source of Information: Patient History Limitations: Reports: No Limitations - History of Present Illness Initial Comments - Free Text/Narative: Mrs. Corona is a 36 yo woman who presented to the emergency room last night with abdominal pain, nausea/vomiting, diarrhea and fever. Symptoms began four days ago. She has had similar but milder episodes of pain which seem to occur on a monthly cycle; she was seen for similar issues here in January and a CT scan was obtained which looked normal. The pain is most notable in the right lower quadrant but she is diffusely tender. Her weight has been stable and she denies any bloody bowel movements. Though she has been having diarrhea she has not had a bowel movement since Sunday and clinic workup including stool tests is pending. She has no personal or family history of inflammatory bowel disease. She has no sick contacts and recent COVID test is negative. Surgical history is remarkable only for ovary-sparing hysterectomy for endometriosis. She denies any history of anal fistula or abscess or oral lesions to suggest Crohn disease. In the ER last night, the patient was febrile and labs were significant for elevated CRP of 14. CT imaging shows some relatively mild enhancement of the small bowel in the pelvis suggestive of focal enteritis. Abdomen Pain Score (Numeric/FACES): 8 Headache Pain Score (Numeric/FACES): 9 - Related Data Allergies/Adverse Reactions: Allergies Allergy/AdvReac Type Severity Reaction Status Date / Time No Known Allergies Allergy Verified 06/24/21 03:03 Home Medications: Home Meds Rizatriptan Benzoate [Rizatriptan] 10 mg PO DAILY PRN 02/05/21 [History] Past Medical History HEENT History: Reports: Other (See Below) Other HEENT History: rhytids Cardiovascular History: Reports: None Respiratory History: Reports: Asthma Gastrointestinal History: Reports: None Genitourinary History: Reports: UTI, Recurrent, Other (See Below) Other Genitourinary History: dysuria [employer]IST History: Reports: Other OB/BYN History: delivery X 1, dysmenorrhea, vaginal discharge, cervical cancer screening Musculoskeletal History: Reports: None Neurological History: Reports: Migraines Psychiatric History: Reports: Anxiety, Depression Endocrine/Metabolic History: Reports: None Hematologic History: Reports: Anemia Immunologic History: Reports: None Oncologic (Cancer) History: Reports: None Dermatologic History: Reports: Other (See Below) Other Dermatologic History: acne, dermatitis, rash - Infectious Disease History Infectious Disease History: Reports: Novel Coronavirus - Past Surgical History Head Surgeries/Procedures: Reports: None HEENT Surgical History: Reports: Tonsillectomy Respiratory Surgical History: Reports: None GI Surgical History: Reports: None Female Surgical History: Reports: Hysterectomy Endocrine Surgical History: Reports: None Neurological Surgical History: Reports: None Musculoskeletal Surgical History: Reports: Arthroscopic Knee Other Musculoskeletal Surgeries/Procedures:: Left ACL Oncologic Surgical History: Reports: None Dermatological Surgical History: Reports: None Social & Family History - Tobacco Use Tobacco Use Status *Q: Never Tobacco User Second Hand Smoke Exposure: No - Caffeine Use Caffeine Use: Reports: Coffee - Recreational Drug Use Recreational Drug Use: No H&P Review of Systems - Review of Systems: Review Of Systems: See Below General: Reports: Fever, Malaise HEENT: Reports: No Symptoms Pulmonary: Reports: No Symptoms Cardiovascular: Reports: No Symptoms Gastrointestinal: Reports: Abdominal Pain, Diarrhea, Nausea Genitourinary: Reports: Other (past UTI) Musculoskeletal: Reports: No Symptoms Skin: Reports: No Symptoms Psychiatric: Reports: No Symptoms Neurological: Reports: No Symptoms Hematologic/Lymphatic: Reports: No Symptoms Immunologic: Reports: No Symptoms Exam - Exam Exam: See Below - Vital Signs Vital Signs: Last Vital Signs Temp 36.1 C 06/24/21 08:43 Pulse 60 06/24/21 08:43 Resp 18 06/24/21 08:43 BP 102/74 06/24/21 08:40 Pulse Ox 99 06/24/21 08:43 Weight: 58.014 kg - Exam General: Alert, Oriented, Cooperative HEENT: Conjunctiva Clear Neck: Trachea Midline Lungs: Normal Respiratory Effort Cardiovascular: Regular Rate, Regular Rhythm GI/Abdominal Exam: Soft, No Distention, No Mass, Other (diffusely tender to light palpation, most notably in the RLQ) Rectal (Female) Exam: Deferred Extremities: Normal Inspection Skin: Warm, Dry Neuro Extensive - Mental Status: Alert, Oriented x3 Psychiatric: Normal Mood - Patient Data Lab Results Last 24 hrs: Laboratory Results - last 24 hr 06/23/21 06/23/21 06/23/21 Range/Units 20:35 20:35 20:35 WBC 6.13 (3.98-10.04) K/mm3 RBC 3.73 L (3.98-5.22) M/mm3 Hgb 11.3 D (11.2-15.7) gm/dl Hct 33.8 L (34.1-44.9) % MCV 90.6 (79.4-94.8) fl MCH 30.3 (25.6-32.2) pg MCHC 33.4 (32.2-35.5) g/dl RDW Std Deviation 39.6 (36.4-46.3) fL Plt Count 119 L D (182-369) K/mm3 MPV 10.6 (9.4-12.3) fl Neut % (Auto) 87.6 H (34.0-71.1) % Lymph % (Auto) 5.5 L (19.3-51.7) % [place] % (Auto) 4.7 (4.7-12.5) % Eos % (Auto) 1.8 (0.7-5.8) Baso % (Auto) 0.2 (0.1-1.2) % Neut # (Auto) 5.37 (1.56-6.13) K/mm3 Lymph # (Auto) 0.34 L (1.18-3.74) K/mm3 [place] # (Auto) 0.29 (0.24-0.36) K/mm3 Eos # (Auto) 0.11 (0.04-0.36) K/mm3 Baso # (Auto) 0.01 (0.01-0.08) K/mm3 Sodium (136-145) mEq/L Potassium (3.5-5.1) mEq/L Chloride (98-107) mEq/L Carbon Dioxide (21-32) mEq/L Anion Gap (5-15) BUN (7-18) mg/dL Creatinine (0.55-1.02) mg/dL Est Cr Clr Drug Dosing mL/min Estimated GFR (MDRD) (>60) mL/min BUN/Creatinine Ratio (14-18) Glucose (70-99) mg/dL Lactic Acid 0.8 (0.4-2.0) mmol/L Calcium (8.5-10.1) mg/dL Total Bilirubin (0.2-1.0) mg/dL AST (15-37) U/L ALT (14-59) U/L Alkaline Phosphatase (46-116) U/L C-Reactive Protein 14.7 H* (<1.0) mg/dL Total Protein (6.4-8.2) g/dl Albumin (3.4-5.0) g/dl Globulin gm/dL Albumin/Globulin Ratio (1-2) Influenza Type A RNA (NEGATIVE) Influenza Type B RNA (NEGATIVE) SARS-CoV-2 RNA (AYM) (NEGATIVE) 06/23/21 06/23/21 Range/Units 20:35 20:59 WBC (3.98-10.04) K/mm3 RBC (3.98-5.22) M/mm3 Hgb (11.2-15.7) gm/dl Hct (34.1-44.9) % MCV (79.4-94.8) fl MCH (25.6-32.2) pg MCHC (32.2-35.5) g/dl RDW Std Deviation (36.4-46.3) fL Plt Count (182-369) K/mm3 MPV (9.4-12.3) fl Neut % (Auto) (34.0-71.1) % Lymph % (Auto) (19.3-51.7) % [place] % (Auto) (4.7-12.5) % Eos % (Auto) (0.7-5.8) Baso % (Auto) (0.1-1.2) % Neut # (Auto) (1.56-6.13) K/mm3 Lymph # (Auto) (1.18-3.74) K/mm3 [place] # (Auto) (0.24-0.36) K/mm3 Eos # (Auto) (0.04-0.36) K/mm3 Baso # (Auto) (0.01-0.08) K/mm3 Sodium 136 (136-145) mEq/L Potassium 3.2 L (3.5-5.1) mEq/L Chloride 103 (98-107) mEq/L Carbon Dioxide 22 (21-32) mEq/L Anion Gap 14.2 (5-15) BUN 7 (7-18) mg/dL Creatinine 0.8 (0.55-1.02) mg/dL Est Cr Clr Drug Dosing 90.82 mL/min Estimated GFR (MDRD) > 60 (>60) mL/min BUN/Creatinine Ratio 8.8 L (14-18) Glucose 104 H (70-99) mg/dL Lactic Acid (0.4-2.0) mmol/L Calcium 8.0 L (8.5-10.1) mg/dL Total Bilirubin 1.1 H (0.2-1.0) mg/dL AST 87 H (15-37) U/L ALT 157 H (14-59) U/L Alkaline Phosphatase 170 H (46-116) U/L C-Reactive Protein (<1.0) mg/dL Total Protein 7.0 (6.4-8.2) g/dl Albumin 3.0 L (3.4-5.0) g/dl Globulin 4.0 gm/dL Albumin/Globulin Ratio 0.8 L (1-2) Influenza Type A RNA Negative (NEGATIVE) Influenza Type B RNA Negative (NEGATIVE) SARS-CoV-2 RNA (AMY) Negative (NEGATIVE) Result Diagrams: 06/23/21 20:35 06/23/21 20:35 Sepsis Event Note - Evaluation Sepsis Screening Result: No Definite Risk - Focused Exam Vital Signs: Vital Signs Temp Pulse Pulse Resp BP BP BP 06/24/21 08:43 36.1 C 60 18 06/24/21 08:40 63 102/74 06/24/21 04:10 77 06/24/21 04:00 36.3 C 81 16 101/75 06/24/21 01:16 37.6 C 96 20 110/69 Pulse Ox 06/24/21 08:43 99 06/24/21 08:40 100 06/24/21 04:10 93 L 06/24/21 04:00 92 L 06/24/21 01:16 93 L Consult PN Assessment/Plan Procedures: Procedures ASSAY OF CREATININE (01/16/20) ASSAY OF FREE THYROXINE (10/11/16) ASSAY OF LIPASE (02/05/21) ASSAY THYROID STIM HORMONE (04/19/21) BLOOD TYPING SEROLOGIC ABO (01/16/20) BLOOD TYPING SEROLOGIC RH(D) (01/16/20) C-REACTIVE PROTEIN (02/05/21) COMPLETE CBC W/AUTO DIFF WBC (04/19/21) COMPREHEN METABOLIC PANEL (02/05/21) CT ABD & PELV W/CONTRAST (02/05/21) EMERGENCY DEPT VISIT (02/05/21) EMERGENCY DEPT VISIT (06/27/15) HYDRATE IV INFUSION ADD-ON (07/17/16) MRI BRAIN STEM W/O & W/DYE (03/04/15) RBC ANTIBODY SCREEN (01/16/20) ROUTINE VENIPUNCTURE (04/19/21) SARS-COV-2 COVID-19 AMP PRB (01/13/20) SMEAR WET [place] SALINE/INK (10/29/19) THER/PROPH/DIAG INJ IV PUSH (02/05/21) TRANSVAGINAL US NON-OB (04/11/21) TRICHOMONAS ASSAY W/OPTIC (10/29/19) TX/PRO/DX INJ NEW DRUG ADDON (02/05/21) URINALYSIS AUTO W/O SCOPE (01/16/20) URINALYSIS AUTO W/SCOPE (04/19/21) URINE CULTURE/COLONY COUNT (03/25/19) URINE TEST (01/16/20) VAG HYST INCLUDING T/O (01/16/20) VIT D 1 25-DIHYDROXY (07/26/16) Problem List Initiated/Reviewed/Updated: Yes Plan: Fever, abdominal pain and finding of segmental enteritis on CT imaging in a 36 yo otherwise healthy woman is suspicious for Crohn disease. The patient did receive 125 mg hydrocortisone IV last night which she says has helped a lot with her symptoms, making Crohn disease more likely than an infectious etiology. I reviewed the case with Dr. Gan, OB-TRANSMISSION SUPERINTENDENT, given the patient's history of hysterectomy for endometriosis and he feels this presentation is not consistent with recurrent endometriosis. The patient already has a referral to a gastroenterology clinic. With positive response to steroids I recommend treating this as a moderate-severe flare with oral prednisone 40 mg daily if patient is tolerating PO. Advance to bland diet. If clinical picture continues to improve, anticipate patient will be fit for discharge to home over the weekend. If she does not have follow up with GI soon She can follow up in surgery clinic here for reassessment and starting p rednisone taper.
--- NOTE | 2021-06-24 11:49 | PCM.HP.2 ---
<Sana Mcgovern - Last Filed: 06/24/21 12:46> H&P History of Present Illness - General Date of Service: 06/24/21 Admit Problem/Dx: Admission Diagnosis/Problem Admission Diagnosis/Problem Enteritis Source of Information: Patient History Limitations: Reports: No Limitations - History of Present Illness Initial Comments - Free Text/Narative: Terri is a 36yo white female admitted on the evening of 06/23/2021 for abdominal pain, nausea, vomiting, non-bloody diarrhea and fever. She was seen in the ED due to worsening symptoms over the past 24 hours. Abdominal pain is throbbing and stabbing in nature and worst at 9/10. She was seen in [facility] 3 days ago for fever, body aches, and vomiting. She was given azithromycin and took 2 doses before stopping due to worsening diarrhea. She was seen again in the [facility] yesterday afternoon where a more thorough work-up was performed. CT abdomen revealed segmental enteritis. UA and CBC were within normal limits. She was advised to seek care in the ED if abdominal pain or other symptoms worsened which prompted her visit. She last ate 2 days ago, her last BM was 2 days ago, and her last vomiting episode was last evening in the ED. She has no travel history, known sick contacts, or ingested any new or potluck foods. She has an 8 month history of intermittent right sided abdominal pain. She had an episode of worsening abdominal pain on 02/05/2021 and which prompted a visit to the ED where abdominal CT was normal. She had similar episodes in February and March which seemed to align with monthly ovarian cycles. She was diagnosed with COVID-19 in 04/2021 with symptoms of diarrhea, shortness of breath, cough, fever. Diarrhea has continued since that time but in the past 3 week, urgency has gotten worse. She has lactose intolerance and avoids gluten due to bloating. Does have a history of skin rashes which are eczematous in nature. She has braces but does note frequent aphthous ulcers in the mouth. General surgery was consulted and advised starting a steroid for suspected inflammatory bowel disease. She has a referral in for [facility]. 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 She has a history of migraine with aura associated with nausea which happens 12-15 days/month. She is using abortive treatment with Maxalt, magnesium and probiotic. Abdomen Pain Score (Numeric/FACES): 8 Headache Pain Score (Numeric/FACES): 9 - Related Data Allergies/Adverse Reactions: Allergies Allergy/AdvReac Type Severity Reaction Status Date / Time No Known Allergies Allergy Verified 06/24/21 03:03 Home Medications: Home Meds Rizatriptan Benzoate [Rizatriptan] 10 mg PO DAILY PRN 02/05/21 [History] Past Medical History HEENT History: Reports: Other (See Below) Other HEENT History: rhytids Cardiovascular History: Reports: None Respiratory History: Reports: Asthma Gastrointestinal History: Reports: None Genitourinary History: Reports: UTI, Recurrent, Other (See Below) Other Genitourinary History: dysuria [employer] History: Reports: Other OB/BYN History: delivery X 1, dysmenorrhea, vaginal discharge, cervical cancer screening Musculoskeletal History: Reports: None Neurological History: Reports: Migraines Psychiatric History: Reports: Anxiety, Depression Endocrine/Metabolic History: Reports: None Hematologic History: Reports: Anemia Immunologic History: Reports: None Oncologic (Cancer) History: Reports: None Dermatologic History: Reports: Other (See Below) Other Dermatologic History: acne, dermatitis, rash - Infectious Disease History Infectious Disease History: Reports: Novel Coronavirus - Past Surgical History Head Surgeries/Procedures: Reports: None HEENT Surgical History: Reports: Tonsillectomy Respiratory Surgical History: Reports: None GI Surgical History: Reports: None Female Surgical History: Reports: Hysterectomy Endocrine Surgical History: Reports: None Neurological Surgical History: Reports: None Musculoskeletal Surgical History: Reports: Arthroscopic Knee Other Musculoskeletal Surgeries/Procedures:: Left ACL Oncologic Surgical History: Reports: None Dermatological Surgical History: Reports: None Social & Family History - Tobacco Use Tobacco Use Status *Q: Never Tobacco User Second Hand Smoke Exposure: No - Caffeine Use Caffeine Use: Reports: Coffee - Recreational Drug Use Recreational Drug Use: No H&P Review of Systems - Review of Systems: Review Of Systems: Comprehensive ROS is negative, except as noted in HPI. Exam - Exam Exam: See Below - Vital Signs Vital Signs: Last Vital Signs Temp 97 F 06/24/21 08:43 Pulse 60 06/24/21 08:43 Resp 18 06/24/21 08:43 BP 102/74 06/24/21 08:40 Pulse Ox 99 06/24/21 08:43 Weight: 127 lb 14.4 oz - Exam General: Alert, Oriented, Cooperative HEENT: Conjunctiva Clear, EOMI, Hearing Intact, Mucosa Moist & [place] Neck: Supple, Trachea Midline Lungs: Clear to Auscultation, Normal Respiratory Effort Cardiovascular: Regular Rate, Regular Rhythm, Normal S1, Normal S2 GI/Abdominal Exam: Normal Bowel Sounds (active), Soft, No Organomegaly, No Distention, No Mass, Tender (tenderness to light palpation in RUQ and RLQ, tenderness to deep palpation in LLQ, RLQ and RUQ; negative Rodarte's sign, no rebound tenderness, negative Rovsing's sign) Back Exam: Normal Inspection, Full Range of Motion, NT Extremities: Normal Inspection, Normal Range of Motion, Non-Tender, No Pedal Edema, Normal Capillary Refill Skin: Warm, Dry, Intact Neurological: Cranial Nerves Intact Neuro Extensive - Mental Status: Alert, Oriented x3, Normal Mood/Affect, Normal Cognition Psychiatric: Alert, Normal Affect, Normal Mood - Patient Data Lab Results Last 24 hrs: Laboratory Results - last 24 hr 06/23/21 06/23/21 06/23/21 Range/Units 20:35 20:35 20:35 WBC 6.13 (3.98-10.04) K/mm3 RBC 3.73 L (3.98-5.22) M/mm3 Hgb 11.3 D (11.2-15.7) gm/dl Hct 33.8 L (34.1-44.9) % MCV 90.6 (79.4-94.8) fl MCH 30.3 (25.6-32.2) pg MCHC 33.4 (32.2-35.5) g/dl RDW Std Deviation 39.6 (36.4-46.3) fL Plt Count 119 L D (182-369) K/mm3 MPV 10.6 (9.4-12.3) fl Neut % (Auto) 87.6 H (34.0-71.1) % Lymph % (Auto) 5.5 L (19.3-51.7) % Esmeralda % (Auto) 4.7 (4.7-12.5) % Eos % (Auto) 1.8 (0.7-5.8) Baso % (Auto) 0.2 (0.1-1.2) % Neut # (Auto) 5.37 (1.56-6.13) K/mm3 Lymph # (Auto) 0.34 L (1.18-3.74) K/mm3 Esmeralda # (Auto) 0.29 (0.24-0.36) K/mm3 Eos # (Auto) 0.11 (0.04-0.36) K/mm3 Baso # (Auto) 0.01 (0.01-0.08) K/mm3 Sodium (136-145) mEq/L Potassium (3.5-5.1) mEq/L Chloride (98-107) mEq/L Carbon Dioxide (21-32) mEq/L Anion Gap (5-15) BUN (7-18) mg/dL Creatinine (0.55-1.02) mg/dL Est Cr Clr Drug Dosing mL/min Estimated GFR (MDRD) (>60) mL/min BUN/Creatinine Ratio (14-18) Glucose (70-99) mg/dL Lactic Acid 0.8 (0.4-2.0) mmol/L Calcium (8.5-10.1) mg/dL Total Bilirubin (0.2-1.0) mg/dL AST (15-37) U/L ALT (14-59) U/L Alkaline Phosphatase (46-116) U/L C-Reactive Protein 14.7 H* (<1.0) mg/dL Total Protein (6.4-8.2) g/dl Albumin (3.4-5.0) g/dl Globulin gm/dL Albumin/Globulin Ratio (1-2) Influenza Type A RNA (NEGATIVE) Influenza Type B RNA (NEGATIVE) SARS-CoV-2 RNA (AMY) (NEGATIVE) 06/23/21 06/23/21 Range/Units 20:35 20:59 WBC (3.98-10.04) K/mm3 RBC (3.98-5.22) M/mm3 Hgb (11.2-15.7) gm/dl Hct (34.1-44.9) % MCV (79.4-94.8) fl MCH (25.6-32.2) pg MCHC (32.2-35.5) g/dl RDW Std Deviation (36.4-46.3) fL Plt Count (182-369) K/mm3 MPV (9.4-12.3) fl Neut % (Auto) (34.0-71.1) % Lymph % (Auto) (19.3-51.7) % Esmeralda % (Auto) (4.7-12.5) % Eos % (Auto) (0.7-5.8) Baso % (Auto) (0.1-1.2) % Neut # (Auto) (1.56-6.13) K/mm3 Lymph # (Auto) (1.18-3.74) K/mm3 Esmeralda # (Auto) (0.24-0.36) K/mm3 Eos # (Auto) (0.04-0.36) K/mm3 Baso # (Auto) (0.01-0.08) K/mm3 Sodium 136 (136-145) mEq/L Potassium 3.2 L (3.5-5.1) mEq/L Chloride 103 (98-107) mEq/L Carbon Dioxide 22 (21-32) mEq/L Anion Gap 14.2 (5-15) BUN 7 (7-18) mg/dL Creatinine 0.8 (0.55-1.02) mg/dL Est Cr Clr Drug Dosing 90.82 mL/min Estimated GFR (MDRD) > 60 (>60) mL/min BUN/Creatinine Ratio 8.8 L (14-18) Glucose 104 H (70-99) mg/dL Lactic Acid (0.4-2.0) mmol/L Calcium 8.0 L (8.5-10.1) mg/dL Total Bilirubin 1.1 H (0.2-1.0) mg/dL AST 87 H (15-37) U/L ALT 157 H (14-59) U/L Alkaline Phosphatase 170 H (46-116) U/L C-Reactive Protein (<1.0) mg/dL Total Protein 7.0 (6.4-8.2) g/dl Albumin 3.0 L (3.4-5.0) g/dl Globulin 4.0 gm/dL Albumin/Globulin Ratio 0.8 L (1-2) Influenza Type A RNA Negative (NEGATIVE) Influenza Type B RNA Negative (NEGATIVE) SARS-CoV-2 RNA (AMY) Negative (NEGATIVE) Result Diagrams: 06/23/21 20:35 06/23/21 20:35 Sepsis Event Note - Evaluation Sepsis Screening Result: No Definite Risk - Focused Exam Vital Signs: Vital Signs Temp Pulse Pulse Resp BP BP BP 06/24/21 08:43 97 F 60 18 06/24/21 08:40 63 102/74 06/24/21 04:10 77 06/24/21 04:00 97.4 F 81 16 101/75 06/24/21 01:16 99.6 F 96 20 110/69 Pulse Ox 06/24/21 08:43 99 06/24/21 08:40 100 06/24/21 04:10 93 L 06/24/21 04:00 92 L 06/24/21 01:16 93 L - Problem List (1) Enteritis SNOMED Code(s): 01461746 ICD Code: K52.9 - NONINFECTIVE GASTROENTERITIS AND COLITIS, UNSPECIFIED Status: Acute Priority: High Current Visit: Yes Problem List Initiated/Reviewed/Updated: Yes Orders Last 24hrs: Active Orders 24 hr Category Date Time Status Admission Status [Patient Status] [ADT] Routine ADT 06/24/21 00:48 Active Bedrest Bathroom Privileges [RC] ASDIRECTED Care 06/24/21 01:33 Active Clear Liquid Diet [DIET] Diet 06/24/21 Breakfast Active BLOOD CULTURE [MREF] Stat Lab 06/23/21 20:35 Received BLOOD CULTURE [MREF] Stat Lab 06/23/21 20:50 Received HYDROmorphone [Dilaudid] Med 06/24/21 10:24 Active 0.5 mg IVPUSH Q2H PRN Lactated Ringers [Ringers, Lactated] 1,000 ml Med 06/24/21 01:30 Active IV ASDIRECTED Ondansetron [Zofran] Med 06/24/21 01:31 Active 4 mg IVPUSH Q6HR PRN Patient's Own Medication [Ptom] Med 06/24/21 10:32 Active 0 each PO DAILY PRN Potassium Chloride [KCl in Water 10 MEQ/100 ML] 10 meq Med 06/24/21 09:00 Active Premix Bag 1 bag IV Q1H Sodium Chloride 0.9% [Saline Flush] Med 06/23/21 20:02 Active 10 ml FLUSH ASDIRECTED PRN predniSONE Med 06/25/21 07:00 Active 40 mg PO WITHBREAKFAST Blood Culture x2 Reflex Set [OM.PC] Stat Oth 06/23/21 20:16 Ordered ED Antiemetic Medication Reflex [OM.PC] Stat Oth 06/23/21 20:02 Ordered Peripheral IV Insertion Adult [OM.PC] Stat Oth 06/23/21 20:02 Ordered Code Status [Resuscitation Status] Routine Resus Stat 06/24/21 01:32 Ordered Medication Orders Hydromorphone HCl (Hydromorphone 0.5 Mg/0.5 Ml Syringe) 0.5 mg IVPUSH Q2H PRN PRN Reason: Pain (moderate 4-6) Lactated Ringer's (Ringers, Lactated) 1,000 mls @ 75 mls/hr IV ASDIRECTED TAMIKO Last Admin: 06/24/21 01:45 Dose: 75 mls/hr Documented by: JENNIFER Potassium Chloride 10 meq/ (Premix) 100 mls @ 100 mls/hr IV Q1H TAMIKO Stop: 06/24/21 12:59 Last Admin: 06/24/21 11:29 Dose: 100 mls/hr Documented by: Infusion: 06/24/21 11:27 Dose: 100 mls/hr Documented by: Admin: 06/24/21 10:27 Dose: 100 mls/hr Documented by: Infusion: 06/24/21 10:26 Dose: 100 mls/hr Documented by: Admin: 06/24/21 09:26 Dose: 100 mls/hr Documented by: LV Ondansetron HCl (Ondansetron 4 Mg/2 Ml Sdv) 4 mg IVPUSH Q6HR PRN PRN Reason: Nausea/Vomiting Rizatriptan Benzoate [Rizatriptan] 10 Mg Tablet 0 each PO DAILY PRN PRN Reason: Headache Prednisone (Prednisone 20 Mg Tab) 40 mg PO WITHBREAKFAST TAMIKO Sodium Chloride (Sodium Chloride 0.9% 10 Ml Syringe) 10 ml FLUSH ASDIRECTED PRN PRN Reason: Keep Vein Open Last Admin: 06/23/21 20:18 Dose: 10 ml Documented by: MERY Assessment/Plan Comment:: 06/24/2021 Assessment: Terri is a 36yo white female admitted on 06/23/2021 for enteritis. She was admitted from the ED with abdominal pain, fever, vomiting, and diarrhea. General surgery was consulted and suspects an etiology of Crohn's disease given clinical picture and history of illness. CT abdomen revealed segmental enteritis. Of note, CRP was 14.7, K+ 3.2, AST/ALT/Alk Phos moderately elevated, and she has diffuse tenderness to palpation of the abdomen. Plan: Enteritis * Start prednisone at 40mg PO daily * Clear liquid diet and advance as tolerated * Continue ondansetron for nausea * Continue Dilaudid PRN q2hr for pain and transition to PO * Activity as tolerated * Repeat CMP, CBC, CRP daily * General surgery consulted and recommended this treatment course, see consultation note * Follow-up with GI as soon as possible Hypokalemia * replace with 10mEq IV Plan discharge in 06/25/2021 VTE prophylaxis: none, score of 0 Code status: full code KB, MS3 - Mortality Measure Prognosis:: Good <Jacob Ba III - Last Filed: 06/24/21 12:57> H&P History of Present Illness - General Admit Problem/Dx: Admission Diagnosis/Problem Admission Diagnosis/Problem Enteritis Exam - Vital Signs Vital Signs: Last Vital Signs Temp 97 F 06/24/21 08:43 Pulse 60 06/24/21 08:43 Resp 18 06/24/21 08:43 BP 102/74 06/24/21 08:40 Pulse Ox 99 06/24/21 08:43 - Patient Data Lab Results Last 24 hrs: Laboratory Results - last 24 hr 06/23/21 06/23/21 06/23/21 Range/Units 20:35 20:35 20:35 WBC 6.13 (3.98-10.04) K/mm3 RBC 3.73 L (3.98-5.22) M/mm3 Hgb 11.3 D (11.2-15.7) gm/dl Hct 33.8 L (34.1-44.9) % MCV 90.6 (79.4-94.8) fl MCH 30.3 (25.6-32.2) pg MCHC 33.4 (32.2-35.5) g/dl RDW Std Deviation 39.6 (36.4-46.3) fL Plt Count 119 L D (182-369) K/mm3 MPV 10.6 (9.4-12.3) fl Neut % (Auto) 87.6 H (34.0-71.1) % Lymph % (Auto) 5.5 L (19.3-51.7) % Esmeralda % (Auto) 4.7 (4.7-12.5) % Eos % (Auto) 1.8 (0.7-5.8) Baso % (Auto) 0.2 (0.1-1.2) % Neut # (Auto) 5.37 (1.56-6.13) K/mm3 Lymph # (Auto) 0.34 L (1.18-3.74) K/mm3 Esmeralda # (Auto) 0.29 (0.24-0.36) K/mm3 Eos # (Auto) 0.11 (0.04-0.36) K/mm3 Baso # (Auto) 0.01 (0.01-0.08) K/mm3 Sodium (136-145) mEq/L Potassium (3.5-5.1) mEq/L Chloride (98-107) mEq/L Carbon Dioxide (21-32) mEq/L Anion Gap (5-15) BUN (7-18) mg/dL Creatinine (0.55-1.02) mg/dL Est Cr Clr Drug Dosing mL/min Estimated GFR (MDRD) (>60) mL/min BUN/Creatinine Ratio (14-18) Glucose (70-99) mg/dL Lactic Acid 0.8 (0.4-2.0) mmol/L Calcium (8.5-10.1) mg/dL Total Bilirubin (0.2-1.0) mg/dL AST (15-37) U/L ALT (14-59) U/L Alkaline Phosphatase (46-116) U/L C-Reactive Protein 14.7 H* (<1.0) mg/dL Total Protein (6.4-8.2) g/dl Albumin (3.4-5.0) g/dl Globulin gm/dL Albumin/Globulin Ratio (1-2) Influenza Type A RNA (NEGATIVE) Influenza Type B RNA (NEGATIVE) SARS-CoV-2 RNA (AMY) (NEGATIVE) 06/23/21 06/23/21 Range/Units 20:35 20:59 WBC (3.98-10.04) K/mm3 RBC (3.98-5.22) M/mm3 Hgb (11.2-15.7) gm/dl Hct (34.1-44.9) % MCV (79.4-94.8) fl MCH (25.6-32.2) pg MCHC (32.2-35.5) g/dl RDW Std Deviation (36.4-46.3) fL Plt Count (182-369) K/mm3 MPV (9.4-12.3) fl Neut % (Auto) (34.0-71.1) % Lymph % (Auto) (19.3-51.7) % Esmeralda % (Auto) (4.7-12.5) % Eos % (Auto) (0.7-5.8) Baso % (Auto) (0.1-1.2) % Neut # (Auto) (1.56-6.13) K/mm3 Lymph # (Auto) (1.18-3.74) K/mm3 Esmeralda # (Auto) (0.24-0.36) K/mm3 Eos # (Auto) (0.04-0.36) K/mm3 Baso # (Auto) (0.01-0.08) K/mm3 Sodium 136 (136-145) mEq/L Potassium 3.2 L (3.5-5.1) mEq/L Chloride 103 (98-107) mEq/L Carbon Dioxide 22 (21-32) mEq/L Anion Gap 14.2 (5-15) BUN 7 (7-18) mg/dL Creatinine 0.8 (0.55-1.02) mg/dL Est Cr Clr Drug Dosing 90.82 mL/min Estimated GFR (MDRD) > 60 (>60) mL/min BUN/Creatinine Ratio 8.8 L (14-18) Glucose 104 H (70-99) mg/dL Lactic Acid (0.4-2.0) mmol/L Calcium 8.0 L (8.5-10.1) mg/dL Total Bilirubin 1.1 H (0.2-1.0) mg/dL AST 87 H (15-37) U/L ALT 157 H (14-59) U/L Alkaline Phosphatase 170 H (46-116) U/L C-Reactive Protein (<1.0) mg/dL Total Protein 7.0 (6.4-8.2) g/dl Albumin 3.0 L (3.4-5.0) g/dl Globulin 4.0 gm/dL Albumin/Globulin Ratio 0.8 L (1-2) Influenza Type A RNA Negative (NEGATIVE) Influenza Type B RNA Negative (NEGATIVE) SARS-CoV-2 RNA (AMY) Negative (NEGATIVE) Result Diagrams: 06/23/21 20:35 06/23/21 20:35 Sepsis Event Note - Focused Exam Vital Signs: Vital Signs Temp Pulse Pulse Resp BP BP BP 06/24/21 08:43 97 F 60 18 06/24/21 08:40 63 102/74 06/24/21 04:10 77 06/24/21 04:00 97.4 F 81 16 101/75 06/24/21 01:16 99.6 F 96 20 110/69 Pulse Ox 06/24/21 08:43 99 06/24/21 08:40 100 06/24/21 04:10 93 L 06/24/21 04:00 92 L 06/24/21 01:16 93 L Problem List Initiated/Reviewed/Updated: Yes Orders Last 24hrs: Active Orders 24 hr Category Date Time Status Admission Status [Patient Status] [ADT] Routine ADT 06/24/21 00:48 Active Bedrest Bathroom Privileges [RC] ASDIRECTED Care 06/24/21 01:33 Active Clear Liquid Diet [DIET] Diet 06/24/21 Breakfast Active Full Liquid Diet [DIET] Diet 06/24/21 Dinner Active BLOOD CULTURE [MREF] Stat Lab 06/23/21 20:35 Received BLOOD CULTURE [MREF] Stat Lab 06/23/21 20:50 Received C-REACTIVE PROTEIN [CHEM] AM Lab 06/25/21 05:11 Ordered CBC WITH AUTO DIFF [HEME] AM Lab 06/25/21 05:11 Ordered CMP [COMPREHENSIVE METABOLIC PN,CMP] [CHEM] AM Lab 06/25/21 05:11 Ordered MAGNESIUM [CHEM] AM Lab 06/25/21 05:11 Ordered HYDROmorphone [Dilaudid] Med 06/24/21 10:24 Active 0.5 mg IVPUSH Q2H PRN Lactated Ringers [Ringers, Lactated] 1,000 ml Med 06/24/21 01:30 Active IV ASDIRECTED Ondansetron [Zofran] Med 06/24/21 01:31 Active 4 mg IVPUSH Q6HR PRN Patient's Own Medication [Ptom] Med 06/24/21 10:32 Active 0 each PO DAILY PRN Potassium Chloride [KCl in Water 10 MEQ/100 ML] 10 meq Med 06/24/21 09:00 Active Premix Bag 1 bag IV Q1H Sodium Chloride 0.9% [Saline Flush] Med 06/23/21 20:02 Active 10 ml FLUSH ASDIRECTED PRN predniSONE Med 06/25/21 07:00 Active 40 mg PO WITHBREAKFAST Blood Culture x2 Reflex Set [OM.PC] Stat Oth 06/23/21 20:16 Ordered ED Antiemetic Medication Reflex [OM.PC] Stat Oth 06/23/21 20:02 Ordered Peripheral IV Insertion Adult [OM.PC] Stat Oth 06/23/21 20:02 Ordered Code Status [Resuscitation Status] Routine Resus Stat 06/24/21 01:32 Ordered Medication Orders Hydromorphone HCl (Hydromorphone 0.5 Mg/0.5 Ml Syringe) 0.5 mg IVPUSH Q2H PRN PRN Reason: Pain (moderate 4-6) Lactated Ringer's (Ringers, Lactated) 1,000 mls @ 75 mls/hr IV ASDIRECTED [facility] Last Admin: 06/24/21 01:45 Dose: 75 mls/hr Documented by: JENNIFER Potassium Chloride 10 meq/ (Premix) 100 mls @ 100 mls/hr IV Q1H [facility] Stop: 06/24/21 12:59 Last Admin: 06/24/21 12:37 Dose: 100 mls/hr Documented by: Infusion: 06/24/21 12:29 Dose: 100 mls/hr Documented by: Admin: 06/24/21 11:29 Dose: 100 mls/hr Documented by: Infusion: 06/24/21 11:27 Dose: 100 mls/hr Documented by: Admin: 06/24/21 10:27 Dose: 100 mls/hr Documented by: Infusion: 06/24/21 10:26 Dose: 100 mls/hr Documented by: Admin: 06/24/21 09:26 Dose: 100 mls/hr Documented by: LV Ondansetron HCl (Ondansetron 4 Mg/2 Ml Sdv) 4 mg IVPUSH Q6HR PRN PRN Reason: Nausea/Vomiting Rizatriptan Benzoate [Rizatriptan] 10 Mg Tablet 0 each PO DAILY PRN PRN Reason: Headache Prednisone (Prednisone 20 Mg Tab) 40 mg PO WITHBREAKFAST TAMIKO Sodium Chloride (Sodium Chloride 0.9% 10 Ml Syringe) 10 ml FLUSH ASDIRECTED PRN PRN Reason: Keep Vein Open Last Admin: 06/23/21 20:18 Dose: 10 ml Documented by: MERY Assessment/Plan Comment:: Patient was seen, examined, and evaluated personally and I agree with the above findings, assessment, and plan. - Mortality Measure Prognosis:: Good
[2021-06-24] MEDS: Ondansetron 4 MG/2 ML SDV IVPUSH PRN (14:27)
[2021-06-24] MEDS: Acetaminophen/Butalbital/Caffeine 325-50-40 MG Tab PO PRN ×2 (18:02→23:10)
[2021-06-25] MEDS: HYDROmorphone 0.5 MG/0.5 ML Syringe IVPUSH PRN ×2 (02:51→05:10)
[2021-06-25] MEDS: Ondansetron 4 MG/2 ML SDV IVPUSH PRN ×2 (02:55→10:21)
[2021-06-25] MEDS ORDERED: LORazepam 2 MG/ML SDV IVPUSH ONE ×2 (03:49→05:11)
[2021-06-25] MEDS: Lactated Ringers 1,000 ML IV SCH (04:16)
[2021-06-25] MEDS ORDERED: Ketorolac 30 MG/ML SDV IVPUSH ONE (05:28)
[2021-06-25] MEDS ORDERED: predniSONE 20 MG Tab PO SCH (07:00)
--- NOTE | 2021-06-25 07:45 | PCM.DCSUM1 ---
Discharge Summary - Hospital Course HPI Initial Comments: Terri is a 36yo white female admitted on the evening of 06/23/2021 for abdominal pain, nausea, vomiting, non-bloody diarrhea and fever. She was seen in the ED due to worsening symptoms over the past 24 hours. Abdominal pain is throbbing and stabbing in nature and worst at 9/10. She was seen in [facility] 3 days ago for fever, body aches, and vomiting. She was given azithromycin and took 2 doses before stopping due to worsening diarrhea. She was seen again in the [facility] yesterday afternoon where a more thorough work-up was performed. CT abdomen revealed segmental enteritis. UA and CBC were within normal limits. She was advised to seek care in the ED if abdominal pain or other symptoms worsened which prompted her visit. She last ate 2 days ago, her last BM was 2 days ago, and her last vomiting episode was last evening in the ED. She has no travel hi story, known sick contacts, or ingested any new or potluck foods. She has an 8 month history of intermittent right sided abdominal pain. She had an episode of worsening abdominal pain on 02/05/2021 and which prompted a visit to the ED where abdominal CT was normal. She had similar episodes in February and March which seemed to align with monthly ovarian cycles. She was diagnosed with COVID-19 in 04/2021 with symptoms of diarrhea, shortness of breath, cough, fever. Diarrhea has continued since that time but in the past 3 week, urgency has gotten worse. She has lactose intolerance and avoids gluten due to bloating. Does have a history of skin rashes which are eczematous in nature. She has braces but does note frequent aphthous ulcers in the mouth. General surgery was consulted and advised starting a steroid for suspected inflammatory bowel disease. She has a referral in for [facility]. 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 She has a history of migraine with aura associated with nausea which happens 12-15 days/month. She is using abortive treatment with Maxalt, magnesium and probiotic. Assessment/Plan Comment:: 06/24/2021 Assessment: Terri is a 36yo white female admitted on 06/23/2021 for enteritis. She was admitted from the ED with abdominal pain, fever, vomiting, and diarrhea. General surgery was consulted and suspects an etiology of Crohn's disease given clinical picture and history of illness. CT abdomen revealed segmental enteritis. Of note, CRP was 14.7, K+ 3.2, AST/ALT/Alk Phos moderately elevated, and she has diffuse tenderness to palpation of the abdomen. Plan: Enteritis * Start prednisone at 40mg PO daily * Clear liquid diet and advance as tolerated * Continue ondansetron for nausea * Continue Dilaudid PRN q2hr for pain and transition to PO * Activity as tolerated * Repeat CMP, CBC, CRP daily * General surgery consulted and recommended this treatment course, see consultation note * Follow-up with GI as soon as possible Hypokalemia * replace with 10mEq IV Plan discharge in 06/25/2021 VTE prophylaxis: none, score of 0 Code status: full code COLEEN, MS3 Diagnosis: Stroke: No - Discharge Data Discharge Date: 06/25/21 Discharge Disposition: Home, Self-Care 01 Condition: Good - Referral to Home Health Primary Care Physician: Lynette Kamara PA-C - Patient Summary/Data Hospital Course: 32-year-old female admitted with abdominal pain. She started on prednisone after getting 1 dose of methylprednisolone. Abdominal pain is now resolved. Patient did have some issues with migraine headache and because we did not have her home medications we did give her Fioricet. Unfortunately she did have a bit of a reaction and she developed anxiety overnight. She was given Ativan and ultimately Toradol with good results. She is now resting comfortably without complaints. She does have an appointment for July 27 with her new pca. She will follow up with her primary care provider and go home on a tapering dose of prednisone. - Patient Instructions Diet: Usual Diet as Tolerated Activity: As Tolerated Driving: Do Not Drive Showering/Bathing: May Shower Notify Provider of: Fever, Nausea and/or Vomiting (or severe abdminal pain) Other/Special Instructions: Follow up with PCP next week and keep appointment with gastroenterology. - Discharge Plan *PRESCRIPTION DRUG MONITORING PROGRAM REVIEWED*: No *COPY OF PRESCRIPTION DRUG MONITORING REPORT IN PATIENT JOSH: No Prescriptions/Med Rec: predniSONE [Prednisone] See Taper PO DAILY #30 tab.[email or web address] Home Medications: Home Meds Rizatriptan Benzoate [Rizatriptan] 10 mg PO DAILY PRN 02/05/21 [History] predniSONE [Prednisone] See Taper PO DAILY #30 tab.ds.pk 06/25/21 [Rx] Oxygen Therapy Mode: Nasal Cannula Patient Handouts: Fever, Adult, Viral Gastroenteritis, Adult, Rrdd-[id number]-[id number], Fo od Choices to Help Relieve Diarrhea, Adult Forms: ED Department Discharge Referrals: Lynette Kamara PA-C [Primary Care Provider] - (she is still out. cecy can be seen by another provider in the mean time.) Xenia Veras, [employer] [Nurse Practitioner] - 07/01/21 9:10 am - Discharge Summary/Plan Comment DC Time >30 min.: Yes Total # of Minutes for Discharge Time: 20 - General Info Date of Service: 06/25/21 Admission Dx/Problem (Free Text: Admission Diagnosis/Problem Admission Diagnosis/Problem Enteritis Subjective Update: Patient is resting comfortably this morning after having a panic attack in the middle of the night. Did require Ativan. This happened a couple hours after getting a second dose of Fioricet making the Fioricet and prednisone likely contributors to her anxiety. She is pain-free at this time. Functional Status: Reports: Pain Controlled - Review of Systems General: Reports: Fatigue HEENT: Reports: No Symptoms Pulmonary: Reports: No Symptoms Cardiovascular: Reports: No Symptoms Gastrointestinal: Reports: No Symptoms Musculoskeletal: Reports: No Symptoms - Patient Data Vitals - Most Recent: Last Vital Signs Temp 98.6 F 06/25/21 05:00 Pulse 100 06/25/21 05:00 Resp 18 06/25/21 05:00 BP 116/70 06/25/21 04:00 Pulse Ox 98 06/25/21 05:00 Weight - Most Recent: 129 lb 4.8 oz I&O - Last 24 hours: Intake & Output 06/24/21 06/25/21 06/25/21 22:59 06:59 14:59 Intake Total 1700 1430 Balance 1700 1430 Lab Results - Last 24 hrs: Laboratory Results - last 24 hr 06/25/21 Range/Units 06:10 WBC 10.89 H (3.98-10.04) K/mm3 RBC 3.72 L (3.98-5.22) M/mm3 Hgb 10.9 L (11.2-15.7) gm/dl Hct 33.4 L (34.1-44.9) % MCV 89.8 (79.4-94.8) fl MCH 29.3 (25.6-32.2) pg MCHC 32.6 (32.2-35.5) g/dl RDW Std Deviation 39.7 (36.4-46.3) fL Plt Count 155 L (182-369) K/mm3 MPV 10.8 (9.4-12.3) fl Neut % (Auto) 91.5 H (34.0-71.1) % Lymph % (Auto) 4.2 L (19.3-51.7) % [place] % (Auto) 3.3 L (4.7-12.5) % Eos % (Auto) 0.1 L (0.7-5.8) Baso % (Auto) 0.1 (0.1-1.2) % Neut # (Auto) 9.96 H (1.56-6.13) K/mm3 Lymph # (Auto) 0.46 L (1.18-3.74) K/mm3 [place] # (Auto) 0.36 (0.24-0.36) K/mm3 Eos # (Auto) 0.01 L (0.04-0.36) K/mm3 Baso # (Auto) 0.01 (0.01-0.08) K/mm3 Manual Slide Review Normal smear Med Orders - Current: Current Medications Acetaminophen/Butalbital/Caffeine (Acetaminophen/Butalbital/Caffeine 325-50-40 Mg Tab) 1 - 2 tab PO Q6H PRN PRN Reason: Headache Last Admin: 06/24/21 23:10 Dose: 2 tab Documented by: Hydromorphone HCl (Hydromorphone 0.5 Mg/0.5 Ml Syringe) 0.5 mg IVPUSH Q2H PRN PRN Reason: Pain (moderate 4-6) Last Admin: 06/25/21 05:10 Dose: 0.5 mg Documented by: Lactated Ringer's (Ringers, Lactated) 1,000 mls @ 75 mls/hr IV ASDIRECTED TAMIKO Last Admin: 06/25/21 04:16 Dose: 75 mls/hr Documented by: Ondansetron HCl (Ondansetron 4 Mg/2 Ml Sdv) 4 mg IVPUSH Q6HR PRN PRN Reason: Nausea/Vomiting Last Admin: 06/25/21 02:55 Dose: 4 mg Documented by: Rizatriptan Benzoate [Rizatriptan] 10 Mg Tablet 0 each PO DAILY PRN PRN Reason: Headache Prednisone (Prednisone 20 Mg Tab) 40 mg PO WITHBREAKFAST TAMIKO Sodium Chloride (Sodium Chloride 0.9% 10 Ml Syringe) 10 ml FLUSH ASDIRECTED PRN PRN Reason: Keep Vein Open Last Admin: 06/23/21 20:18 Dose: 10 ml Documented by: Discontinued Medications Acetaminophen/Butalbital/Caffeine (Acetaminophen/Butalbital/Caffeine 325-50-40 Mg Tab) 1 tab PO ONETIME ONE Stop: 06/24/21 04:26 Last Admin: 06/24/21 04:34 Dose: 1 tab Documented by: Acetaminophen/Butalbital/Caffeine (Acetaminophen/Butalbital/Caffeine 325-50-40 Mg Tab) 1 tab PO ONETIME ONE Stop: 06/24/21 04:45 Last Admin: 06/24/21 04:51 Dose: 1 tab Documented by: Hydromorphone HCl (Hydromorphone 1 Mg/Ml Syringe) 1 mg IVPUSH ONETIME ONE Stop: 06/23/21 20:04 Last Admin: 06/23/21 20:13 Dose: 1 mg Documented by: Hydromorphone HCl (Hydromorphone 0.5 Mg/0.5 Ml Syringe) 0.5 mg IVPUSH ONETIME ONE Stop: 06/23/21 22:37 Last Admin: 06/23/21 22:55 Dose: 0.5 mg Documented by: Hydromorphone HCl (Hydromorphone 0.5 Mg/0.5 Ml Syringe) 0.5 mg IVPUSH Q6H PRN PRN Reason: Pain Last Admin: 06/24/21 09:55 Dose: 0.5 mg Documented by: Sodium Chloride (Normal Saline) 1,000 mls @ 1,000 mls/hr IV .BOLUS STA Stop: 06/23/21 21:01 Last Admin: 06/23/21 20:12 Dose: 1,000 mls/hr Documented by: Potassium Chloride 10 meq/ (Premix) 100 mls @ 100 mls/hr IV Q1H TAMIKO Stop: 06/24/21 12:59 Last Admin: 06/24/21 12:37 Dose: 100 mls/hr Documented by: Ketorolac Tromethamine (Ketorolac 30 Mg/Ml Sdv) 30 mg IVPUSH ONETIME ONE Stop: 06/25/21 05:29 Last Admin: 06/25/21 05:40 Dose: 30 mg Documented by: Lorazepam (Lorazepam 2 Mg/Ml Sdv) 1 mg IVPUSH ONETIME ONE Stop: 06/25/21 03:50 Last Admin: 06/25/21 03:59 Dose: 1 mg Documented by: Lorazepam (Lorazepam 2 Mg/Ml Sdv) 1 mg IVPUSH ONETIME ONE Stop: 06/25/21 05:12 Last Admin: 06/25/21 05:23 Dose: 1 mg Documented by: Methylprednisolone Sodium Succinate (Methylprednisolone Sodium Succinate 125 Mg/2 Ml Sdv) 125 mg IVPUSH ONETIME ONE Stop: 06/23/21 23:29 Last Admin: 06/23/21 23:44 Dose: 125 mg Documented by: Metoclopramide HCl (Metoclopramide 10 Mg/2 Ml Sdv) 10 mg IVPUSH ONETIME ONE Stop: 06/23/21 20:03 Last Admin: 06/23/21 20:12 Dose: 10 mg Documented by: Prednisone (Prednisone 20 Mg Tab) 40 mg PO ONETIME ONE Stop: 06/24/21 10:32 Last Admin: 06/24/21 11:32 Dose: 40 mg Documented by: - Exam Quality Assessment: Denies: Supplemental Oxygen General: Reports: Sedated HEENT: Reports: Pupils Equal, Mucous Membr. Moist/[place] Neck: Reports: Supple Lungs: Reports: Clear to Auscultation, Normal Respiratory Effort Cardiovascular: Reports: Regular Rate, Regular Rhythm GI/Abdominal Exam: Normal Bowel Sounds, Soft, Non-Tender, No Organomegaly, No Distention, No Abnormal Bruit, No Mass Skin: Reports: Warm, Dry, Intact Neurological: Reports: No New Focal Deficit Psy/Mental Status: Reports: Alert, Normal Affect, Normal Mood
[2021-06-25] MEDS ORDERED: Rizatriptan Benzoate [Rizatriptan] 10 MG Tablet PO PRN (08:30)
[2021-06-25] MEDS ORDERED: Magnesium Oxide 400 MG Tab PO ONE (09:11)
[2021-06-25] MEDS ORDERED: Potassium Chloride 20 MEQ Tab.ER PO ONE (09:11)
[2021-06-25] MEDS ORDERED: Lactated Ringers 500 ML IV ONE (09:56)
[2021-06-25 14:29] VITALS: BP 110/67; PULSE 113
== END 2021-06-25 13:55 | disposition home or self-care (01) ==
LOC: JD.ED 19:29 → JD.ICU 06-24 00:48 → JD.MS 06-25 08:02
PROVIDERS: ADMIT Family Medicine; ATTEND Family Medicine
DX: K52.9 Noninfective gastroenteritis and colitis, unspecified (principal); E87.6 Hypokalemia; G43.109 Migraine with aura, not intractable, without status migrainosus; J45.909 Unspecified asthma, uncomplicated; F41.9 Anxiety disorder, unspecified; F32.9 Major depressive disorder, single episode, unspecified; Z79.899 Other long term (current) drug therapy; Z98.890 Other specified postprocedural states; Z20.822 Contact with and (suspected) exposure to COVID-19
CPT/HCPCS: 0240U; 36415; 80053; 83605; 83735; 85025; 86140; 87040; 96374; 96375; 96376; 99284; A9270; J1170; J1885; J2060; J2405; J2765; J2930; J3480; J7030; J7120; J7512; 99217; 99218; G0378

== ENCOUNTER 2024-04-06 05:48 | Emergency (ER) | payer BC ==
[2024-04-06 06:46] LABS: APPEARANCE,URINE CLEAR (Clear); BILIRUBIN,URINE NEGATIVE (Negative); COLOR,URINE YELLOW (Yellow); GLUCOSE,URINE NEGATIVE (Negative); KETONES,URINE NEGATIVE (Negative); LEUKOCYTE ESTERASE,URINE NEGATIVE (Negative); NITRITE,URINE NEGATIVE (Negative); OCCULT BLOOD,URINE NEGATIVE (Negative); PROTEIN,URINE NEGATIVE (Negative); UROBILINOGEN,URINE 0.2 (0.2-1.0)
[2024-04-06 06:54] LABS: BASOPHILS PERCENT AUTO 0.7 % (0.0-1.0); EOSINOPHILS ABSOLUTE AUTO 0.2 K/mm3 (0.0-0.4); EOSINOPHILS PERCENT AUTO 3.8 % (0.0-6.0); HEMATOCRIT 40.3 % (37.0-47.0); HEMOGLOBIN 13.9 gm/dl (12.0-16.0); IMMATURE GRAN ABSOLUTE AUTO 0.01 K/mm3 (0.00-0.05); IMMATURE GRAN PERCENT AUTO 0.2 % (0.0-0.4); LYMPHOCYTES ABSOLUTE AUTO 1.5 K/mm3 (1.0-4.8); LYMPHOCYTES PERCENT AUTO 33.8 % (24.0-44.0); MEAN CORPUSCULAR HEMOGLOBIN 30.8 pg (28.0-32.0); MEAN CORPUSCULAR HGB CONC 34.5 g/dl (32.0-36.0); MEAN CORPUSCULAR VOLUME 89.2 fl (83.0-99.0); MEAN PLATELET VOLUME 9.7 fl (9.4-12.3); MONOCYTES ABSOLUTE AUTO 0.3 K/mm3 (0.0-0.8); MONOCYTES PERCENT AUTO 6.3 % (0.0-8.0); NEUTROPHILS ABSOLUTE AUTO 2.5 K/mm3 (1.8-7.7); NEUTROPHILS PERCENT AUTO 55.2 % (41.0-71.0); PLATELET COUNT,PLT 183 K/mm3 (150-400); RED BLOOD CELL COUNT 4.52 M/mm3 (4.10-5.30); WHITE BLOOD CELL COUNT,WBC 4.44 K/mm3 (3.9-11.3)
[2024-04-06] MEDS: Sodium Chloride 0.9% 10 ML Syringe FLUSH PRN (06:54)
[2024-04-06 07:01] LABS: RBC,URINE 0-5 /hpf (0-5); WBC,URINE 0-5 /hpf (0-5)
[2024-04-06 07:02] LABS: BACTERIA,URINE FEW /hpf (FEW); MUCUS,URINE FEW /hpf (FEW); SQUAMOUS EPITHELIAL CELLS,UR 0-5 /hpf (0-5)
[2024-04-06 07:15] LABS: A/G RATIO 1.2 (1-2); ALBUMIN 3.9 g/dl (3.4-5.0); ANION GAP 12.7 (5-15); BILIRUBIN TOTAL 0.4 mg/dL (0.2-1.0); CALCIUM 8.6 mg/dL (8.5-10.1); CREATININE 0.9 mg/dL (0.55-1.02); EST CRCL DRUG DOSING (CG) 69.01 mL/min; POTASSIUM,K 3.7 mEq/L (3.5-5.1); PROTEIN TOTAL,TP 7.1 g/dl (6.4-8.2)
[2024-04-06] MEDS: Ketorolac 15 MG/ML SDV IVPUSH ONE (07:47)
[2024-04-06] MEDS: Iopamidol 612 MG/ML 100 ML Bottle IVPUSH ONE (08:52)
[2024-04-06] MEDS: Magnesium Citrate Solution 296 ML Bottle PO ONE (09:33)
[2024-04-06 09:41] VITALS: BP 117/81; PULSE 50
== END 2024-04-06 09:30 | disposition home or self-care (01) ==
LOC: JD.ED 05:48
DX: R10.31 Right lower quadrant pain (principal); I50.9 Heart failure, unspecified; Z79.899 Other long term (current) drug therapy; Z86.16 Personal history of COVID-19; Z90.710 Acquired absence of both cervix and uterus
CPT/HCPCS: 36415; 74177; 76830; 80053; 81001; 85025; 96374; 99284; A9270; J1885; J3490; Q9967